=== PATIENT | female | born 1955 | race African-American/Black ===

== ENCOUNTER 2025-06-29 12:34 | Outpatient (AMB) | payer MEDICARE, SELFPAY ==
--- NOTE | 2025-06-29 12:53 | A.PHYSOV ---
Vital Signs 06/29/25 12:56 Height 5 ft 11 in Weight 210 lb BMI 29.3 Intake Visit Reasons: NPV VMA Ref- bilateral knee pain Intake Note: Patient is a 70 year old female here for new patient office visit. Patient presents with bilateral knee pain. Allergist/Immunologist Physician Required: No Allergies No Known Allergies Allergy (Verified 06/29/25 12:56) HPI Comments Details: History of Present Illness The patient is a 70 year old individual presenting with knee pain and swelling. The patient reports that for the past month, there has been significant swelling and pain in the knees, ankles, and toes. The patient has a history of arthritis and was recently diagnosed with gout based on blood work. The pain is worse at night and upon standing after prolonged sitting. The patient has not had previous x-rays or cortisone injections for the knees but did try physical therapy in the past, which was not helpful. The patient recently took some unspecified pills prescribed by Dr. Petersen to reduce swelling. The patient's medical history is significant for diabetes, for which the blood sugars are reportedly well-controlled. The patient denies any known allergies. There are no x-rays in the system. Patient is not interested in having any x-rays today. I reviewed the referring provider's no prior consultation. Pain Description - Onset: Approximately one month ago. - Location: Pain and swelling are present in the knees, ankles, and side of the toes. - Character: Described as soreness. - Exacerbating Factors: Pain worsens at nighttime and when attempting to stand after sitting for a period of time. - Severity: The patient had difficulty quantifying the pain on a 0-10 scale. [facility] Surgical History H/O thumb surgery History of back surgery Social History (Updated 06/29/25 @ 12:57 by Flora Persaud MA) Alcohol intake: current Alcohol intake frequency: does not drink Patient Tobacco Use Status: Former Tobacco user Review of Systems Narrative Review of Systems - Musculoskeletal: Reports knee pain, ankle pain, and swelling in the knees, ankles, and toes. - Endocrine: Reports history of diabetes with good blood sugar control. - Allergic/Immunologic: Denies any known allergies. Physical Exam Exam Exam: Physical Exam Lumbar Spine: Examination of her lumbar spine, there is no visible swelling or deformity. She is tender to lower lumbar facets. She is otherwise nontender. Full range of motion of the lumbar spine. Special Tests: Lhermittes sign was negative Heel Toe walk is normal Left straight leg raise: Negative Right straight leg raise: Negative Special tests Cristiano test is negative Ganslen's test is negative SI Joint compression test negative July test negative Piriformis stretch is negative Lower Extremities: Examination of both knees, there is no effusion. She is tender to the medial joint line bilaterally. There is popliteal fullness on the left. She has full range of motion of her knee in flexion-extension. Her ligaments are intact. She does have pain with Ravin testing medially. No calf pain or edema. Neuro: Sensation: Intact to lower extremities bilaterally Strength L2 (Psoas): 5/5 on the left and 5/5 on the right. L3 (Quads): 5/5 on the left and 5/5 on the right. L4 (Ant tibialis): 5/5 on the left and 5/5 on the right. L5 (EHL) 5/5 on the left and 5/5 on the right. S1 (Gastroc): 5/5 on the left and 5/5 on the right. DTR L4: (Patellar) Left 2 Right 2 S1: (Achilles) Left 2 Right 2 Babinski Downgoing No pathologic clonus. No involuntary movement. Vital Signs: BMI result Body Mass Index 29.3 Office Procedures AMB Knee Injection AMB Knee Injection Procedure Details: Bilateral Knee injection: The risks, benefits and complications of the left knee injection were discussed with the patient including but not limited to increased serum glucose, infection, nerve pain, fat atrophy, pigment augmentation, bleeding and pain. All questions were answered to the patient's satisfaction. Verbal consent was obtained. The patient was eager to proceed. Using aseptic technique with Betadine, ethyl chloride was then used to desensitize the skin. Using a 22-gauge needle 40 mg of Kenalog and 3 mL 2% lidocaine were injected into the knee joint. A Band-Aid was applied. Patient tolerated the procedure well without immediate complication. Postinjection instructions were given. The procedure was repeated on the right. Knee Injection - : Bilateral All charges added?: Procedure code (CPT) selection complete Office Meds Kenalog 40 mg/mL suspension for injection Performing Provider: LEILANI Biswas Performing Location: [facility] Administered by: LEILANI Biswas on 06/29/25 13:17 Dose Route Admin Location Dispensed Lot Number Expiration Date [facility] [employer] 40 mg intra-articular 1 mL [id number] [employer] Total Dispensed Waste 1 mL 0 % lidocaine (PF) 20 mg/mL (2 %) injection solution Performing Provider: LEILANI Biswas Performing [facility] Administered by: LEILANI Biswas on 06/29/25 13:17 Dose Route Admin Location Dispensed Lot Number Expiration Date [facility] [employer] 60 mg intra-articular 50 mL [id number] Total Dispensed Waste 50 mL 0 % Assessment & Plan Assessment & Plan (1) Bilateral primary osteoarthritis of knee: Code(s): M17.0 - Bilateral primary osteoarthritis of knee Category: Medical (2) Gouty arthritis: Code(s): M10.9 - Gout, unspecified Category: Medical Plan Pain Management - Affect: The patient is seeking pain relief to be able to get up and down and move around to prepare a Thanksgiving dinner. - Analgesia: The patient is interested in and received bilateral knee cortisone injections during the visit. - Activities of Daily Living: Pain interferes with getting up from a sitting position. Plan Patient was informed and verbally consented to the use of an ambient scribe for clinic note documentation during this visit. 1. Gout Of Knee The patient's knee pain and swelling, ongoing for a month, are attributed to both pre-existing arthritis and a new diagnosis of gout confirmed by blood work. Bilateral intra-articular corticosteroid injections were administered to the knees to address inflammation from both conditions. The patient was educated on following a low-purine diet, limiting foods like shellfish, certain meats, and alcohol to manage gout. These injections can be repeated every three months as needed for pain relief. 2. Ankle Pain And Swelling The patient also reports associated ankle swelling and pain, particularly at night. Management for the ankle is deferred to assess for any systemic benefits from the knee corticosteroid injections. If ankle symptoms persist after a month, the patient is advised to return for further evaluation and potential ankle injection. 3. Diabetes Mellitus The patient has a history of diabetes with good blood sugar control. Advised that the corticosteroid injections may temporarily increase blood glucose levels and instructed to monitor sugars, contacting the primary doctor if levels exceed 300. We discussed the benefits of proper nutrition and exercise to maintain a healthy body weight to improve longevity and function. We also discussed the benefits of proper lifting techniques, core strengthening and proper posture. Thank you for allowing me to participate in the care of your patient. Orders: Orders AMB Knee Injection Today M10.9 - Gout, unspecified, M17.0 - Bilateral primary osteoarthritis of knee Coding Level of Care Code Tele New Pt Level 3 (32637) Diagnoses Bilateral primary osteoarthritis of knee M17.0 Gouty arthritis M10.9 CPT Codes AMB Knee Injection - Hip/Bursa Injection - : Bilateral ([id number])
[2025-06-29 12:56] VITALS: BMI 29.3
--- OUTSIDE RECORDS SUMMARY | 2025-06-29 15:35 | XMS_ITS | Continuity of Care Document ---
Author Organization [facility], Main Office Address [address] [facility] [address] [place] [address] Care Team Providers Care Statistical Reporting Analyst Name Role Phone CHIO ARGUETA Primary Care Provider ADELAIDA TEAGUE Orthopedic Surgeon [phone] DANILO MATHEWS Psychiatrist JOHN MYERS Orthopedic Surgeon [facility] Psychiatr ist ANNA CEDENO Contracts Law Professor HOLLY CLEMENTS Galley Cook MARIELENA JACK Rail Switchman FERNANDO CARRANZA Economics Instructor [phone] SERA FIORE Referring Provider JOSHUA BLACKBURN Cell Lead [phone] HUMZA TAYLOR Fixing Carpenter Assessment No assessment recorded. Plan of Treatment Reminders Order Date Submit Date Provider Last Modified By Organization Details Last Modified Time Details Appointments Follow Up DM 30 2025 10:30A M Lucita Tellez PA-C Not available Not available Not available Lab uric acid, serum or plasma 2024 025 ELROY [facility] (Centralized Electronic Ordering - All Locations), Patient Can Go To The Location Of Their Choice, [id number] 05/26/2025 06:08:16 inflammat ion panel, serum or plasma 2024 025 ELROY [facility] (Centralized Electronic Ordering - All Locations), Patient Can Go To The Location Of Their Choice, [id number] 05/26/2025 06:08:15 [facility] - Patient has chronic intermitt ent bilateral knee pain, consisten t with arthritis . Does have CKD, history of gout. Limited pain managemen t options. Patient reports she does exercises at home and is intereste d in additiona l pain managemen t options. 2024 025 JOE Wilson MD, [address], [place], [address], 05/26/2025 10:47:25 Procedures None recorded. Surgeries None recorded. Imaging None recorded. Medication Orders None recorded. Patient TargetsNo targets recorded. Patient Instructions Encounter Date Encounter Id Patient Instructions Last Modified By Organization Details Last Modified Time 05/25/2025 [id number] knee arthritis: exercises [email or web address] Not available 05/25/2025 11:20:40 Medications (OTC, herbal therapies, supplements) reviewed and reconciled with patient and or caregiver, including potential side effects, drug interactions, instructions, and the consequences of not taking medication. Reviewed potential barriers to medication adherence, such as side effects from medication or cost of medication. [email or web address] Not available 05/25/2025 10:18:01 Reason for Referral Physical Medicine And Rehabi litation Referral for Pain of knee region Patient has chronic intermittent bilateral knee pain, consistent with arthritis. Does have CKD, history of gout. Limited pain management options. Patient reports she does exercises at home and is interested in additional pain management options. Referring Physician: Kristine Khanna, Family Medicine, Encounter Date: 05/25/2025 Results Created Date Observation Date Name Description Value Unit Range Abnormal Flag Note LastModifiedBy Organization Detail LastModifiedTime 05/25/2005/25/2025 ESR-W ES+CR P sedimentatio n rate-westerg kang 95 mm/HR 0-40 above high normal Not Available [facility] ([facility]) [address] [facility], [place], [address], 05/26/2025 06:08:15 05/25/2005/26/2025 ESR-W ES+CR P C-reactive protein, quant 32 mg/L 0-10 above high normal Not Available [facility] ([facility]) [address] [facility], [place], [address], 05/26/2025 06:08:15 05/25/20 25 05/26/2025 URIC ACID uric acid 10.8 mg/dL 3.1-7. 9 above high normal Thera blossom garcia tarcrispin t for gout patie nts: <6.0 Not Available [facility] ([facility]) [address] [facility], [place], [address], 05/26/2025 06:08:16 Result Notes None recorded. Problems Name Problem SNOMED Code Status Onset Date Resolution Date Notes Provider Name and Address Organization Details Recorded Time Type 2 diabetes mellitus without complica tion 831541368 Completed 10/26/2019 This has resolved since weight loss; not currentl y on meds 09/2015. Lucita Tellez PA-C [address] [address], [place], [address] , [facility] 0 11:10:16 Multiple congenit al cysts of kidney 03672291 Active Stable on CT. Not Available [facility] 3 13:34:14 Malaise and fatigue 002099477 Active Not Available [facility] 3 13:34:14 Sciatica 87355955 Active Not Available [facility] 3 13:34:14 Diarrhea 63330891 Completed 10/26/2019 Lucita Tellez PA-C [address] [facility] [address], [place], [address] , [facility] 0 11:10:01 Degenera tion of lumbar interver tebral disc 37789719 Active seen by [facility] and also followed by Dr Myers Not Available [facility] 3 13:34:14 Type 2 diabetes mellitus 12831937 Completed 10/05/2014 Chio Argueta MD [address] [facility] [address], [place], [address] , [facility] 1 11:31:05 Ischemic colitis 84907684 Active had parital colectom y Not Available [facility] 3 13:34:14 Onychomy cosis 611305256 Active Followed by De Teodoro Not Available [facility] 3 13:34:14 Hammer toe 760327831 Active Followed by De Teodoro Not Available [facility] 3 13:34:14 Ingrowin g nail 428121173 Active Followed by De Teodoro Not Available [facility] 3 13:34:14 Abdomina l pain 72644588 Active Not Available [facility] 3 13:34:14 Advance directiv e discusse d with patient 490147930 Active Not Available [facility] 3 13:34:14 Type 2 diabetes mellitus 61148817 Completed 02/03/2018 Chio Argueta MD [address] [facility] [address], [place], [address] , [facility] 1 11:31:05 Kidney disease 52860530 Active Not Available 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 3 13:34:14 Tobacco dependen ce syndrome 63763550 Completed 08/28/2022 pt quit ABIMBOLA TREVINO MD [address] [facility] [address], [place], [address] , [facility] 3 16:15:46 General examinat ion of patient Completed 200702/22/2014 RECORDED 04/25/20 08 12:38PM BY PRINCE LU MA, ANNOTATI ON/ADDEN DUM Chio Argueta MD [address] [facility] [address], [place], [address] , [facility] 6 16:57:14 General examinat ion of patient Completed 200703/14/2014 RECORDED 04/25/20 08 12:38PM BY PRINCE LU MA, ANNOTATI ON/ADDEN DUM Chio Argueta MD [address], [place], [address] , [facility] 6 16:57:14 Essentia l hyperten kemal 65987247 Completed 201102/22/2014 RECORDED 10/29/19 12 10:22AM BY PRINCE LU MA, ANNOTATI ON/ADDEN DUM Lucita Geoff PA-C [address], [place], [address] , [facility] 5 14:23:35 Essentia l hyperten kemal 90703796 Completed 201103/14/2014 RECORDED 10/29/19 12 10:22AM BY PRINCE LU MA, ANNOTATI ON/ADDEN DUM Lucita Geoff PA-C [address], [place], [address] , [facility] 5 14:23:35 Screenin g for malignan t neoplasm of breast Completed 201102/22/2014 RECORDED 05/04/20 12 9:25AM BY ANAMIKA ORONA ON/ADDEN DUM Chio Argueta MD [address], [place], [address] , [facility] 6 16:57:14 Screenin g for malignan t neoplasm of cervix Completed 201102/22/2014 RECORDED 05/04/20 12 9:25AM BY CARLOS ALBERTO ORONAATI ON/ADDEN RAFAELA Argueta MD [address], [place], [address] , [facility] 6 16:57:14 Screenin g for malignan t neoplasm of colon Completed 201102/22/2014 RECORDED 05/04/20 12 9:25AM BY ANAMIKA ORONA ON/MARISABEL Argueta MD [address], [place], [address] , [facility] 6 16:57:14 Edema 786002596 Completed 201102/22/2014 RECORDED 05/04/20 12 9:25AM BY ANAMIKA ORONA ON/MARISABEL Argueta MD [address], [place], [address] , [facility] 6 16:57:14 Eruption [id number] Completed 201102/22/2014 RECORDED 05/04/20 12 9:25AM BY ANAMIKA ORONA ON/MARISABEL Agrueta MD [address], [place], [address] , [facility] 6 16:57:14 Adult health examinat ion Completed 201102/22/2014 RECORDED 05/04/20 12 9:25AM BY ANAMIKA ORONA ON/MARISABEL Argueta MD [address] [facility] [address], [place], [address] , [facility] 6 16:57:14 Screenin g for malignan t neoplasm of breast Completed 201103/14/2014 RECORDED 05/04/20 12 9:25AM BY ANAMIKA ORONA ON/MARISABEL Argueta MD [address], [place], [address] , [facility] 6 16:57:14 Screenin g for malignan t neoplasm of cervix Completed 201103/14/2014 RECORDED 05/04/20 12 9:25AM BY ANAMIKA ORONA ON/ADDEN RAFAELA Argueta MD [address], [place], [address] , [facility] 6 16:57:14 Screenin g for malignan t neoplasm of colon Completed 201103/14/2014 RECORDED 05/04/20 12 9:25AM BY ANAMIKA ORONA ON/ADDEN DUM Chio Argueta MD [address] [facility] [address], [place], [address] , [facility] 6 16:57:14 Edema [id number] Completed 201103/14/2014 RECORDED 05/04/20 12 9:25AM BY ANAMIKA ORONA ON/ADDEN RAFAELA Argueta MD [address] [facility] [address], [place], [address] , [facility] 6 16:57:14 Eruption 073885357 Completed 201103/14/2014 RECORDED 05/04/20 12 9:25AM BY ANAMIKA ORONA ON/ADDEN DUM Chio Argueta MD [address] [facility] [address], [place], [address] , [facility] 6 16:57:14 Obesity 734987707 Completed 201202/22/2014 RECORDED 11/05/19 13 9:08AM BY ANAMIKA ORONA ON/ADDEN DUM Abbie Villafana shae, [facility] 9 11:56:06 Obesity 956928541 Completed 201203/14/2014 RECORDED 11/05/19 13 9:08AM BY ANAMIKA ORONA ON/ADDEN DUM Abbie Villafana null, [facility] 9 11:56:06 Partial resectio n of colon Active 2012 Not Available [facility] 3 13:34:14 Noninfec tious gastroen teritis 94469771 Completed 201202/22/2014 RECORDED 05/13/20 13 8:44AM BY MERE HIGHTOWER I, ANNOTATI ON/ADDEN DUM Chio Argueta MD [address] [facility] [address], [place], [address] , [facility] 6 16:57:14 Influenz a vaccine needed 86093722542 06 Completed 201202/22/2014 RECORDED 05/13/20 13 9:10AM BY MERE HIGHTOWER I, OFFICE VISIT Chio Argueta MD [address] [facility] [address], [place], [address] , [facility] 6 16:57:14 Noninfec tious gastroen teritis 83495316 Completed 201203/14/2014 RECORDED 05/13/20 13 8:44AM BY MERE HIGHTOWER I, CARLOS ALBERTOATI ON/ADDEN DUM Chio Argueta MD [address] [facility] [address], [place], [address] , [facility] 6 16:57:14 Influenz a vaccine needed 46605311911 06 Completed 201203/14/2014 RECORDED 05/13/20 13 9:10AM BY MERE HIGHTOWER I, OFFICE VISIT Chio Argueta MD [address] [facility] [address], [place], [address] , [facility] 6 16:57:14 Patient status finding [id number] Completed 201202/22/2014 RECORDED 05/19/20 13 12:57PM BY GUALBERTO HELTON MA, ANNOTATI ON/ADDEN DUM Chio Argueta MD [address] [facility] [address], [place], [address] , [facility] 6 16:57:14 Patient status finding [id number] Completed 201203/14/2014 RECORDED 05/19/20 13 12:57PM BY GUALBERTO HELTON MA, ANAMIKA ON/MARISABEL Argueta MD [address], [place], [address] , [facility] 6 16:57:14 Laborato ry procedur e performe d 925848193 Completed 201202/22/2014 RECORDED 06/16/20 13 12:59PM BY ANAMIKA ORONA ON/MARISABEL Argueta MD [address] [facility] [address], [place], [address] , [facility] 6 16:57:14 Laborato ry procedur e performe d 387963003 Completed 201203/14/2014 RECORDED 06/16/20 13 12:59PM BY ANAMIKA ORONA ON/MARISABEL Argueta MD [address] [facility] [address], [place], [address] , [facility] 6 16:57:14 Follow-u p encounte r Completed 201302/22/2014 RECORDED 08/09/19 14 10:30AM BY JORGE HAMMOND MA, ANAMIKA ON/MARISABEL Argueta MD [address] [facility] [address], [place], [address] , [facility] 6 16:57:14 Knee pain Completed 201302/22/2014 RECORDED 08/09/19 14 10:30AM BY JORGE HAMMOND MA, ANAMIKA ON/MARISABEL Argueta MD [address] [facility] [address], [place], [address] , [facility] 6 16:57:14 Follow-u p encounte r Completed 201303/14/2014 RECORDED 08/09/19 14 10:30AM BY JORGE HAMMOND MA, ANAMIKA ON/MARISABEL Argueta MD [address] [facility] [address], [place], [address] , [facility] 6 16:57:14 Knee pain Completed 201303/14/2014 RECORDED 08/09/19 14 10:30AM BY JORGE HAMMOND MA, ANAMIKA ON/MARISABEL Argueta MD [address] [facility] [address], [place], [address] , [facility] 6 16:57:14 Attentio n to colostom y Completed 201302/22/2014 IMPRESSI ON: SHE IS DOING WELL WITH OTC IMMODIUM ; SCHEDULE D FOR A TAKEDOWN IN 4 DAYS.; RECORDED 09/06/19 14 8:20AM BY ANAMIKA ORONA ON/MARISABEL Argueta MD [address] [facility] [address], [place], [address] , [facility] 6 16:57:14 Attentio n to colostom y Completed 201303/14/2014 IMPRESSI ON: SHE IS DOING WELL WITH OTC IMMODIUM ; SCHEDULE D FOR A TAKEDOWN IN 4 DAYS.; RECORDED 09/06/19 14 8:20AM BY ANAMIKA ORONA/MARISABEL Argueta MD [address] [facility] [address], [place], [address] , [facility] 6 16:57:14 History of gastroin testinal disease 981907760 Completed 201302/22/2014 IMPRESSI ON: SHE HAD A TAKEDOWN DONE ABOUT 3 WEEKS AGO AND HAS SOME ABDOMINA L PAIN BUT IS DOING BETTER.; RECORDED 10/13/19 14 8:19AM BY ANAMIKA ORONA ON/MARISABEL Argueta MD [address] [address], [place], [address] , [facility] 6 16:57:14 History of gastroin testinal disease 810562186 Completed 201303/14/2014 IMPRESSI ON: SHE HAD A TAKEDOWN DONE ABOUT 3 WEEKS AGO AND HAS SOME ABDOMINA L PAIN BUT IS DOING BETTER.; RECORDED 10/13/19 14 8:19AM BY ANAMIKA ORONA/MARISABEL Argueta MD [address] [address], [place], [address] , [facility] 6 16:57:14 Diarrhea 48438035 Completed 201302/22/2014 IMPRESSI ON: SECONDAR Y TO ILEUM AND COLON RESECTIO N. WILL DO A TRIAL OF AN ANTIDIAR RHEAL TO SEE IF THIS REDUCES HER FREQUENC Y.; RECORDED 12/07/19 14 11:21AM BY ANAMIKA ORONA/MARISABEL Tellez PA-C [address] [address], [place], [address] , [facility] 0 11:10:01 Pain of hip region 37869803 Completed 201302/22/2014 IMPRESSI ON: SECONDAR Y TO L5 RADICULO ELVIS; FOLLOWED BY PSSP.; RECORDED 12/07/19 14 11:21AM BY ANAMIKA ORONA/MARISABEL Argueta MD [address] [address], [place], [address] , [facility] 6 16:57:14 Ill-defi dejah disease Completed 201302/22/2014 IMPRESSI ON: SHE HAS BEEN OOW SINCE HER ICU ADMISSIO N AND SURGERY LAST YEAR. WE WILL SEND HER TO OT FOR AN EVALUATI ON CONCERNI NG HER PHYSICAL ABILITIE S TO HELP DETERMIN E DISABILI TY LEVEL.; RECORDED 12/07/19 14 11:21AM BY ANAMIKA ORONA/MARISABEL Argueta MD [address] [facility] [address], [place], [address] , [facility] 6 16:57:14 Patient status finding [id number] Completed 201305/17/2014 RECORDED 12/07/19 14 11:33AM BY MERE HIGHTOWER I, OFFICE VISIT Chio Argueta MD [address] [facility] [address], [place], [address] , [facility] 6 16:57:14 Pain of hip region 35354651 Completed 201303/14/2014 IMPRESSI ON: SECONDAR Y TO L5 RADICULO ELVIS; FOLLOWED BY PSSP.; RECORDED 12/07/19 14 11:21AM BY MERE HIGHTOWER I, ANNOTATI ON/MARISABEL Argueta MD [address] [facility] [address], [place], [address] , [facility] 6 16:57:14 Ill-defi dejah disease Completed 201303/14/2014 IMPRESSI ON: SHE HAS BEEN OOW SINCE HER ICU ADMISSIO N AND SURGERY LAST YEAR. WE WILL SEND HER TO OT FOR AN EVALUATI ON CONCERNI NG HER PHYSICAL ABILITIE S TO HELP DETERMIN E DISABILI TY LEVEL.; RECORDED 12/07/19 14 11:21AM BY MERE HIGHTOWER I, ANNOTATI ON/MARISABEL Argueta MD [address] [facility] [address], [place], [address] , [facility] 6 16:57:14 Liver function tests outside referenc e range 990250010 Completed 201305/17/2014 RECORDED 01/07/20 14 11:22AM BY MERE HIGHTOWER I, OFFICE VISIT Chio Argueta MD [address] [facility] [address], [place], [address] , [facility] 6 16:57:14 Hypercal cemia 36809594 Completed 201305/17/2014 IMPRESSI ON: PROBABLY SECONDAR Y TO RENAL FAILURE; RECORDED 01/07/20 14 11:22AM BY MERE HIGHTOWER I, OFFICE VISIT Chio Argueta MD [address] [facility] [address], [place], [address] , [facility] 6 16:57:14 Hypokale nadine 08140169 Completed 201305/17/2014 RECORDED 01/07/20 14 11:22AM BY MERE HIGHTOWER I, OFFICE VISIT Chio Argueta MD [address] [facility] [address], [place], [address] , [facility] 6 16:57:14 Acidosis 91219171 Completed 201305/17/2014 IMPRESSI ON: WITH AN INCREASE D ANION GAP C/W RENAL FAILURE. ; RECORDED 01/07/20 14 11:22AM BY MERE HIGHTOWER I, OFFICE VISIT Chio Argueta MD [address] [facility] [address], [place], [address] , [facility] 6 16:57:14 Disorder of intestin e 00833140 Completed 201305/17/2014 STORY: ADMITTED AND HAD SURGERY DONE ON NECROTIC INTESTIN ES.; RECORDED 01/07/20 14 11:22AM BY MERE HIGHTOWER I, OFFICE VISIT Chio Argueta MD [address] [facility] [address], [place], [address] , [facility] 6 16:57:14 Disorder of kidney and/or ureter 315984577 Completed 201305/17/2014 IMPRESSI ON: DOING BETTER SINCE D/C; SHE IS DRINKING PLENTY OF FLUIDS AND TAKING FIBER; SHE HAS A F/U WITH GI WELL WITH RENAL.; RECORDED 01/07/20 14 11:22AM BY MERE HIGHTOWER I, OFFICE VISIT Chio Argueta MD [address] [facility] [address], [place], [address] , [facility] 6 16:57:14 Adult health examinat ion Completed 201305/17/2014 RECORDED 01/07/20 14 11:22AM BY MERE HIGHTOWER I, OFFICE VISIT Chio Argueta MD [address] [facility] [address], [place], [address] , [facility] 6 16:57:14 Multiple congenit al cysts of kidney 59679908 Completed 201303/14/2014 RECORDED 01/07/20 14 9:05AM BY MERE HIGHTOWER I, ANNOTATI ON/ADDEN DUM Chio Argueta MD [address] [facility] [address], [place], [address] , [facility] 6 16:57:14 Degenera tion of interver tebral disc Completed 201303/14/2014 IMPRESSI ON: FOLLOWED BY [facility]SS[facility] AND DOING PT WHICH HAS NOT BEEN HELPING. ; RECORDED 01/07/20 14 9:05AM BY MERE HIGHTOWER I, ANNOTATI ON/ADDEN DUM Chio Argueta MD [address] [facility] [address], [place], [address] , [facility] 6 16:57:14 Allergic rhinitis 56860262 Active 2016 Not Available [facility] 3 13:34:14 Stenosin g tenosyno vitis 72342561 Active 2016 right thumb; schedule d for surgery with Dr Teague Not Available [facility] 3 13:34:14 Obesity 840366835 Active 2018 Not Available [facility] 3 13:34:14 Chronic kidney disease stage 2 524539089 Completed 201810/26/2019 Lucita Tellez PA-C [address] [facility] [address], [place], [address] , [facility] 0 10:41:53 Low back pain 800210052 Active 2018 Followed by [facility] and on chronic narcotic s.. Post-amanda inectomy syndrome . Not Available [facility] 3 13:34:14 Long-ter m current use of insulin 532980531 Active 2019 Not Available [facility] 3 13:34:14 Small bowel obstruct ion 146807114 Active 2019 Not Available [facility] 3 13:34:14 Diabetic peripher al neuropat hy 639495491 Active 2019 Not Available [facility] 3 13:34:14 Hyperten sive renal disease 15842901 Active 2020 Not Available [facility] 3 13:34:14 Chronic kidney disease stage 2 due to type 2 diabetes mellitus 72939823398 1 Completed 202003/22/2021 Chio Argueta MD [address] [address], [place], [address] , [facility] 1 11:30:46 Renal disorder due to type 2 diabetes mellitus 749338278 Active 2020 Not Available [facility] 3 13:34:14 Iron deficien cy anemia 74894225 Active 2021 Not Available 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 [address] [facility] [address], [place], [address] , [facility] 5 11:02:47 Gouty arthriti s 32221599 Active 2024 KRISTINE Ewing, [facility] [address] [facility] [address], [place], [address] , [facility] 5 09:13:39 Problem Notes None recorded. Procedures Surgical History Date Name Laterality Status Provider Name and Address Organization Details Recorded Time 025 Diabetic Foot Exam (Monofilament) completed Chio Argueta MD [address] [address], [place], [address], [facility] 12/21/2024 15:18:30 025 Most Recent Mammogram completed Lisa Mcdermott [facility] 10/04/2024 15:10:45 025 Mammogram Screening completed Lisa Mcdermott [facility] 10/04/2024 15:10:28 024 diabetic retinopathy screening completed Elizabeth Nair [facility] 11/13/2023 08:33:25 024 Advanced Care Planning completed Chio Argueta MD [address] [address], [place], [address], [facility] 09/09/2023 15:08:14 024 Diabetic Foot Exam (Monofilament) completed Chio Argueta MD [address] [address], [place], [address], [facility] 09/09/2023 15:08:18 022 Date of Last Colonoscopy completed Wendi Villafana [facility] 05/01/2022 14:00:37 022 Colonoscopy completed Wendi Sharifo [facility] 05/01/2022 14:00:28 021 Diabetic Foot Exam (Monofilament) completed Chio Argueta MD [address] [address], [place], [address], [facility] 03/22/2021 11:38:44 021 Date of Last Pap Smear completed [facility] Dinh [facility] [place] 12/28/2020 14:04:45 020 Diabetic Foot Exam (Monofilament) completed Chio Argueta MD [address] [address], [place], [address], [facility] 02/15/2020 12:53:11 020 Six-Item Cognitive Test completed Wilma Colorado [facility] 02/15/2020 11:05:31 020 Flexible Sigmoidoscopy completed Meredith Beth [facility] 01/12/2020 10:17:58 019 Diabetic Foot Exam (Monofilament) completed Mayte Granado [facility] 04/14/2019 10:34:46 018 simple tenolysis of flexor tendon of palm completed Chio Argueta MD [address], [address], [facility] 02/09/2019 11:42:43 018 revision of tenolysis completed Elise Castellon [facility] 06/08/2018 14:01:23 018 Mini-Cog Test completed Mere Dodge [facility] 11/04/2017 11:19:18 017 Mini-Cog Test completed Mere Dodge [facility] 10/01/2016 10:10:06 016 Advanced Care Planning completed Mere Dodge [facility] 09/26/2015 11:00:09 014 Gastrointestinal Surgery completed Chio Argueta MD [address] [address], [place], [address], [facility] 05/18/2014 12:51:48 014 Back Surgery completed Chio Argueta MD [address] [address], [place], [address], [facility] 05/27/2014 13:23:02 013 Gastrointestinal Surgery completed Chio Argueta MD [address] [address], [place], [address], [facility] 05/18/2014 12:51:48 Imaging Results None recorded. Procedure Notes None recorded. Medical Equipment None Reported. Allergies Allergen ID Allergen Name Allergen Category Reaction Reaction Severity Criticality Documentation Date Start Date Code Code System Note Provider Name and Address Organization Details Recorded Time 9602 No known allergy (situatio n) Not available Not available Not available Not available 02/15/2014 [id number] SNDANISH Norton [address] [address], [place], [address], [facility] 6 20:36:54 No known drug allergies Medications Name Sig Start Date Stop Date Status Note LastModified by Organization Details LastModified Time oxycodone /acetamin ophen 5-325 mg tabs active Not Available Not Available Not Available Prescript ion - Clarifica tion 06/28 completed Not Available Not Available Not Available Prescript ion - New 07/29 completed Not Available Not Available Not Available celecoxib 200 mg capsule TAKE 1 CAPSULE BY MOUTH EVERY DAY 08/28 completed Not Available Not Available Not Available prednison e 10 mg tablet Take 1 tablet every day by oral route as directed for 12 days. 06/14 completed Not Available Not Available Not Available atorvasta tin 20 mg tablet TAKE ONE TABLET BY MOUTH DAILY AT 9PM AT BEDTIME active Not Available Not Available No t Available insulin glargine (U-100) 100 unit/mL subcutane ous solution QD active RECORDED 05/08/20 14 1:03PM BY CHIO LARA MD, ANNOTATI ON/MARISABEL DUM; Not Available Not Available Not Available Klor-Con 10 mEq tablet,ex tended release Take 1 tablet every day by oral route for 7 days. 2023 active Not Available Not Available Not Avai lable Vitamin C 500 mg tablet Take 1 tablet every day by oral route for 90 days. 06/14 completed Not Available Not Available Not Available cetirizin e 10 mg tablet Take 1 tablet every day by oral route. 09/09 completed Not Available Not Available Not Available lisinopri l 20 mg-hydroc hlorothia zide 12.5 mg tablet TAKE 1 TABLET BY MOUTH EVERY DAY 08/07 completed Not Available Not Available Not Available ibuprofen 800 mg tablet 06/10 completed CKD Not Available Not Available Not Available Glucagon Emergency Kit 1 mg solution for injection Take 1 mg by injectio n route. 2024 active Not Available Not Available Not Avai lable nifedipin e ER 90 mg tablet,ex tended release TAKE 1 TABLET BY MOUTH EVERY DAY DIRECTED FOR 90 DAYS 03/22 completed Not Available Not Available Not Available metoprolo l succinate ER 50 mg tablet,ex tended release 24 hr TAKE ONE TABLET BY MOUTH ONCE DAILY active Not Available Not Available No t Available diltiazem CD 240 mg capsule,e xtended release 24 hr TAKE ONE CAPSULE BY MOUTH DAILY AT 9AM FOR 90 DAYS active Not Available Not Available No t Available sucralfat e 1 gram tablet TAKE 1 TABLET BY MOUTH 4 TIMES A DAY 03/22 completed Not Available Not Available Not Available lisinopri l 20 mg tablet TAKE 1 TABLET BY MOUTH EVERY DAY 05/08 completed Not Available Not Available Not Available ondansetr on HCl 4 mg tablet 4 mg by oral route. 02/14 completed Not Available Not Available Not Available metoprolo l succinate ER 100 mg tablet,ex tended release 24 hr TAKE ONE TABLET BY MOUTH DAILY AT 9AM 06/16 completed Not Available Not Available Not Available diphenoxy late-atro pine 2.5 mg-0.025 mg tablet DAILY 02/07 completed RECORDED 02/15/20 14 8:58AM BY CHIO LARA MD, MEDICATI ON AUTO-CLARY CTIVATIO N; Not Available Not Available Not Available diltiazem ER 240 mg capsule,2 4 hr,extend ed release Take 1 capsule every day by oral route for 90 days. 09/30 completed has diltiaze m CD. Not Available Not Available Not Available omeprazol e 40 mg capsule,d elayed release TAKE ONE CAPSULE BY MOUTH TWICE DAILY @ 9AM & 5PM active Not Available Not Available No t Available acetamino phen 500 mg tablet Take 2 tablets every 6 hours by oral route as needed. 06/16 completed Not Available Not Available Not Available hydrocort isone acetate 25 mg rectal supposito ry Insert 1 supposit ory twice a day by rectal route for 12 days. 01/20 completed Not Available Not Available Not Available meloxicam 7.5 mg tablet Take 1 tablet every day by oral route for 28 days. 09/17 completed Not Available Not Available Not Available oxycodone -acetamin ophen 5 mg-325 mg tablet TAKE ONE TABLET BY MOUTH DAILY NEEDED , MAY PARTIAL FILL 05/25 completed Not Available Not Available Not Available magnesium oxide 400 mg (241.3 mg magnesium ) tablet TAKE 1 TABLET BY MOUTH ONCE DAILY active Not Available Not Available No t Available metoclopr amide 5 mg tablet TAKE 1 TABLET BY MOUTH THREE TIMES A DAY BEFORE MEALS FOR 30 DAYS 06/16 completed Not Available Not Available Not Available nifedipin e 10 mg capsule THREE TIMES DAILY 08/12 completed RECORDED 08/12/19 14 11:01AM BY CHIO LARA MD, ANNOTATI ON/ADDEN DUM;MAY CRUSH Not Available Not Available Not Available sodium bicarbona te 650 mg tablet Take 1 tablet twice a day by oral route for 14 days. 06/24 completed Not Available Not Available Not Available nifedipin e ER 90 mg tablet,ex tended release 24 hr TAKE 1 TABLET BY MOUTH EVERY DAY 2013 active Not Available Not Available Not Avai lable pantopraz ole 40 mg tablet,de layed release TAKE 1 TABLET BY MOUTH EVERY DAY 03/22 completed Not Available Not Available Not Available ferrous sulfate 325 mg (65 mg iron) tablet Take 1 tablet twice a day by oral route for 90 days. 2021 active Not Available Not Available Not Avai lable lisinopri l 10 mg tablet Take 1 tablet every day by oral route for 90 days, for blood pressure . 07/29 completed Not Available Not Available Not Available lidocaine 5 % topical patch 07/29 completed Not Available Not Available Not Available indometha raghav 50 mg capsule TAKE ONE CAPSULE BY MOUTH TWICE DAILY FOR 7 DAYS active Not Available Not Available No t Available gabapenti n 300 mg capsule Take 1 capsule 3 times a day by oral route as needed. active Not Available Not Available No t Available lisinopri l 20 mg-hydroc hlorothia zide 25 mg tablet TAKE ONE TABLET BY MOUTH DAILY AT 9AM FOR 90 DAYS active Not Available Not Available No t Available diclofena c sodium 75 mg tablet,de layed release Take 1 tablet twice a day by oral route for 30 days. 2014 active Not Available Not Available Not Pat lable K-Dur 10 mEq tablet,ex tended release QD 02/20 completed RECORDED 02/21/20 09 10:46AM BY PRINCE LU MA, OFFICE VISIT;30 DAY Not Available Not Available Not Available ammonium lactate 12 % topical cream 10/01 completed Not Available Not Available Not Available codeine 10 mg-guaife nesin 100 mg/5 mL oral liquid Take 10 mL every 4 hours by oral route as needed, for cough. 05/25 completed Not Available Not Available Not Available lisinopri l 5 mg tablet TAKE 1 TABLET BY MOUTH EVERY DAY DIRECTED 03/22 completed Not Available Not Available Not Available gabapenti n 100 mg capsule Take 1 capsule 3 times a day by oral route for 90 days. active Not Available Not Available No t Available azelastin e 137 mcg (0.1 %) nasal spray PLACE 2 SPRAYS IN EACH NOSTRIL 2 TIMES DAILY FOR 30 DAYS. USE IN EACH NOSTRIL DIRECTED 07/18 completed Not Available Not Available Not Available Tylenol-C odeine #3 300 mg-30 mg tablet EVERY 6 HOURS NEEDED FOR PAIN 06/24 completed RECORDED 06/28/20 13 8:26AM BY CHIO LARA MD, MEDICATI ON AUTO-CLARY CTIVATIO N; Not Available Not Available Not Available ibuprofen 600 mg tablet 2 po q 6 hours prn 09/17 completed Not Available Not Available Not Available ferrous sulfate 325 mg (65 mg iron) tablet,de layed release Take 325 mg by oral route. 09/08 completed Not Available Not Available Not Available Naprosyn 500 mg tablet Take 1 tablet twice a day by oral route for 30 days. 2014 active Not Available Not Available Not Avai lable fluticaso ne propionat e 50 mcg/actua tion nasal spray,heather pension USE 2 SPRAY(S) IN EACH NOSTRIL ONCE DAILY FOR 30 DAYS 05/25 completed Not Available Not Available Not Available doxycycli ne hyclate 100 mg tablet Take 1 tablet twice a day by oral route as directed for 10 days. 04/29 completed Not Available Not Available Not Available loratadin e 10 mg tablet TAKE 1 TABLET BY MOUTH EVERY DAY 02/09 completed Not Available Not Available Not Available amoxicill in 875 mg-potass ium clavulana te 125 mg tablet Take 1 tablet every 12 hours by oral route for 10 days. 07/18 completed Not Available Not Available Not Available ferrous sulfate ER 325 mg (65 mg iron) capsule,e xtended release Take 1 capsule every day by oral route as directed . 05/01 completed duplicat e Not Available Not Available Not Available calcium 1,250 mg chewable tablet DAILY 05/23 completed RECORDED 05/23/20 13 10:51AM BY CHIO LARA MD, ANNOTATI ON/ADDEN DUM; Not Available Not Available Not Available insulin lispro (U-100) 100 unit/mL subcutane ous pen Take 5-10 units before each meal dependin g upon sugar level. 12/09 completed Not Available Not Available Not Available Novolog FlexPen U-100 Insulin aspart 100 unit/mL (3 mL) subcutane ous INJECT 5-10 UNITS SUBCUTAN EOUSLY THREE TIMES DAILY based on sugar levels. 2024 active Not Available Not Available Not Avai lable cyclobenz aprine 5 mg tablet 06/14 completed Not Available Not Available Not Available Prilosec OTC 20 mg tablet,de layed release Take 20 mg by oral route. 04/16 completed Not Available Not Available Not Available DILT-XR 120 mg capsule, extended release Take 1 capsule every day by oral route for 30 days. 12/19 completed reflex tachycar jayson Not Available Not Available Not Available acetamino phen 500 mg oral tablet 2 tabs every 6 hours as needed for pain 02/09 completed Not Available Not Available Not Available ferrous sulfate 325 mg , 1 tab by mouth daily for 90 days increase to twice a day in few days if does not cause stomach pain. 08/17 completed Not Available Not Available Not Available promethaz ine EVERY 6 HOURS PRN 01/03 completed RECORDED 01/06/20 13 11:20AM BY MELONIE PADILLA PA-C, MEDICATI ON AUTO-CLARY CTIVATIO N; Not Available Not Available Not Available Nasacort 24h hour 1- 2 sprays 03/22 completed Not Available Not Available Not Available multivita min DAILY 01/20 completed RECORDED 01/21/20 13 8:09AM BY CHIO LARA MD, REFILL REQUEST; THIS ORDER DISCONTI NUED PER MEDI-SPA N. Not Available Not Available Not Available Multivita min W/Iron DAILY 07/19 completed RECORDED 07/19/20 10 8:19AM BY CHIO LARA MD, REFILL REQUEST; THIS ORDER DISCONTI NUED PER MEDI-SPA N. Not Available Not Available Not Available Pen [place] AT BEDTIME 12/09 completed RECORDED 12/10/19 14 1:03PM BY CHIO LARA MD, ANNOTATI ON/ADDEN DUM; Not Available Not Available Not Available metformin ER 500 mg 24 hr tablet,ex tended release (gastric retention ) Take 2 tablets every day by oral route for 90 days. 06/16 completed never took it Not Available Not Available Not Available [place] 0.025 % (0.035 %) eye drops PLACE 1 DROP INTO AFFECTED EYE TWICE A DAY FOR 30 DAYS 07/18 completed Not Available Not Available Not Available FreeStyle Lite Meter kit active Not Available Not Available No t Available Golytely 236 gram-22.7 4 gram-6.74 gram-5.86 gram oral solution 08/28 completed Not Available Not Available Not Available FreeStyle Lite Strips USE DIRECTED ONCE DAILY 2023 active Not Available Not Available Jonathan sultana [facility]ocate Lancet THREE TIMES DAILY 12/09 completed RECORDED 12/10/19 14 1:03PM BY CHIO LARA MD, ANNOTATI ON/ADDEN DUM; Not Available Not Available Not Available Advocate Redi-Code Glucose Monitor THREE TIMES DAILY 12/09 completed RECORDED 12/10/19 14 1:03PM BY CHIO LARA MD, CARLOS ALBERTOATI ON/ADDEN DUM; Not Available Not Available Not Available Advocate Redi-Code DAILY 12/09 completed RECORDED 12/10/19 14 1:03PM BY CHIO LARA MD, ANNOTATI ON/ADDEN DUM; Not Available Not Available Not Available omeprazol e 20 mg tablet,de layed release TAKE 1 TABLET BY MOUTH TWICE A DAY 02/14 completed Not Available Not Available Not Available GaviLyte- N 420 gram oral solution 01/13 completed Not Available Not Available Not Available bismuth subsalicy late 524 mg/30 mL oral suspensio n Take 4 times a day by oral route as directed . 08/17 completed Not Available Not Available Not Available Benefiber Sugar Free (dextrin) 3 gram/4 gram oral powder Take 2 g twice a day by oral route. active not ready yet at pharmacy Not Available Not Available Not Available Nasal Allergy 55 mcg spray aerosol USE 1 2 SPRAYS INTO EACH NOSTRIL DAILY 03/22 completed Not Available Not Available Not Available Proctosol HC 2.5 % topical cream perineal applicato r 01/20 completed Not Available Not Available Not Available Radha Jeffers U-100 Insulin 100 unit/mL (3 mL) subcutane ous INJECT 35 UNITS SUBCUTAN EOUSLY EVERY DAY AT BEDTIME (90 DAYS) 11/21 completed Not Available Not Available Not Available Fiasp U-100 Insulin 100 unit/mL subcutane ous solution INJECT 5 TO 10 UNITS SUBCUTAN EOULSY THREE TIMES DAILY BASED ON A SLIDING SCALE 06/14 completed Not Available Not Available Not Available Fiasp FlexTouch U-100 Insulin 100 unit/mL (3 mL) subcutane ous pen Inject 10 sliding scale doses 3 times a day by subcutan eous route before meal(s), for diabetes . 06/14 completed Not Available Not Available Not Available FreeStyle Amber 14 Day Sensor kit Use 1 sensor every 14 days. I month supply. Dx: E11.9 05/08 completed Not Available Not Available Not Available Gvoke HypoPen 2-Pack 0.5 mg/0.1 mL subcutane ous auto-inje ctor use as directed for hypoglyc emia 2024 active Not Available Not Available Not Avai lable Fluzone High-Dose Quad (PF) 240 mcg/0.7 mL IM syringe TO BE ADMINIST ERED BY PHARMACI ST FOR IMMUNIZA TION 09/08 completed Not Available Not Available Not Available insulin glargine- yfgn (U-100) 100 unit/mL (3 mL) subcutane ous pen INJECT 35 UNITS SUBCUTAN EOUSLY AT BEDTIME active Not Available Not Available No t Available Mounjaro 2.5 mg/0.5 mL subcutane ous pen injector Inject 2.5 mg every week by subcutan eous route for 30 days. 2024 active Not Available Not Available Not Avai lable Siena 2nd Gen Pen Needle 32 gauge x 5/32 USE FOUR TIMES DAILY DIRECTED 2024 active Not Available Not Available Not Avai lable Vitals Date Recorded Body height Body mass index (BMI) Body weight Heart rate Oxygen saturation Body temperature Systolic And Diastolic Provider Name and Address Organization Details Last Updated DateTime 179.07 cm 28.2 kg/m2 50863.6 8 g 100 /min 96 % 97.9 [degF] 132/86 mm[Hg] Melonie Carnesgavin Pope [place] [facility] 5 10:46:11 Social History Question Answer Notes LastModified by Organizat ion Details LastModified Time Tobacco Smoking Status Former Smoker Not Available [facility] 06/06/2020 03:36:36 Do You Have An Advance Directive? Yes [id number] Information not available 06/06/2020 Is Blood Transfusion Acceptable In An Emergency? Yes [id number] Information not available 06/06/2020 What Is Your Level Of Caffeine Consumption? None [id number] Information not available 06/06/2020 In The 14 Days Before Symptom Onset, Have You Had Close Contact With A Laboratory-confir med COVID-19 While That Case Was Ill? No [id number] Information not available 06/06/2020 In The 14 Days Before Symptom Onset, Have You Had Close Contact With A Person Who Is Under Investigation For COVID-19 While That Person Was Ill? No [id number] Information not available 06/06/2020 Have You Been To An Area Known To Be High Risk For COVID-19? No [id number] Information not available 06/06/2020 What Type Of Diet Are You Following? REGULAR [id number] Information not available 06/06/2020 Which Illicit Or Recreational Drugs Have You Used? None [id number] Information not available 06/06/2020 Live Alone Or With Others? With Others [email or web address] Information not available 05/17/2014 Do You Take Precautions To Prevent Distracted Driving? Yes [email or web address] Information not available 10/01/2016 How Often Do You Need To Have Someone Help You When You Read Instructions, Pamphlets, Or Other Written Material From Your Doctor Or Pharmacy? Never [email or web address] Information not available 09/26/2015 Have You Served In The ? No [email or web address] Information not available 10/01/2016 Have You Or Anyone In Your Household Had Any Of The Following Symptoms In The Last 14 Days: Sore Throat, Cough, Chills, Body Aches For Unknown Reasons, Shortness Of Breath For Unknown Reasons, Loss Of Smell, Loss Of Taste, Fever At Or Greater Than 100 Degrees Fahrenheit? No [email or web address] Information not available 02/15/2020 Are You Or Anyone In Your Household A Health Care Provider Or Emergency Responder? No [email or web address] Information not available 02/15/2020 To The Best Of Your Knowledge Have You Been In Close Proximity To Any Individual Who Tested Positive For COVID-19? No [email or web address] Information not available 02/15/2020 What Was The Date Of Your Most Recent Tobacco Screening? 10/13/2024 [email or web address] Information not available 10/13/2024 How Many Children Do You Have? 3 [employer] Sons [id number] Information not available 06/06/2020 Do You Use Protection During Sex? No [id number] Information not available 06/06/2020 Seat Belts Used Routinely Yes [email or web address] Information not available 09/26/2015 Are You Sexually Active? Yes [id number] Information not available 06/06/2020 Smoke Alarm In Home Yes [facility] Information not available 09/26/2015 Do You Use Sunscreen Routinely? No [id number] Information not available 06/06/2020 Sex: Female Functional Status Question Answer Note LastModified by Organizat ion Details LastModified Time What is your level of alcohol consumption? Occasional rarely [id number] Information not available 06/06/2020 Do you or have you ever used smokeless tobacco? Never used smokeless tobacco [id number] Information not available 06/06/2020 Are you currently employed? No [id number] Information not available 06/06/2020 Are you able to care for yourself independently? Yes [id number] Information not available 06/06/2020 Do you or have you ever used e-cigarettes or vape? Never used electronic cigarettes [id number] Information not available 06/06/2020 What is your exercise level? Occasional [id number] Information not available 06/06/2020 Mental Status None recorded. Family History Relationship Description Onset Age of this Age Resolved Age Notes LastModified by Organization Details LastModified Time Mother Hypertensive disorder 85 [email or web address] Not available 09/26 11:05:14 Mother Diabetes mellitus 85 [email or web address] Not available 0704/2019 11:39:48 Father Hypertensive disorder 79 [email or web address] Not available 09/26 11:05:14 Father Harmful pattern of use of alcohol 78 [email or web address] Not available 09/05 11:00:09 Sister Diabetes mellitus [email or web address] Not available 04/2019 11:39:51 Sister Dementia [email or web address] Not availa ble 10/13/2024 11:45:52 Brother Diabetes mellitus 62 on dialys is [email or web address] Not available 02/09/2019 11:40:13 Brother Malignant neoplasm of stomach [email or web address] Not available 10/02 11:45:35 Notes:4 sister and 3 brother s (2 sisters and 2 brothers ) Medical History No medical history recorded. Gynecological History Statement/Question Response Date of Last Pap Smear 12/05/2020 Date of Last Colonoscopy 04/26/2022 Most Recent Mammogram 10/02/2024 Obstetrics History GPAL:G 0 P 0 0 0 0 Immunizations Vaccine Type Date Status Note Provider Nam e and Address Organization Details Recorded Time Influenza, high-dose, trivalent, PF 5 completed KRISTINE KHANNA, [facility] [address] [facility] [address], [address] 05/25/2025 11:19:38 Influenza, split virus, trivalent, PF 5 completed Elizabeth kaufman, [facility] 05/01/2023 14:04:47 Influenza, split virus, quadrivalent, PF 8 completed Elizabeth kaufman [facility] 05/01/2023 14:04:47 Influenza, MDCK, quadrivalent, PF 9 completed Elizabeth kaufman, [facility] 05/01/2023 14:04:46 Influenza, high-dose, quadrivalent, PF 0 completed Elizabeth kaufman [facility] 05/01/2023 14:04:46 pneumococcal polysaccharide PPV23 5 completed Not Available [facility] 08/21/2019 02:21:42 COVID-19, mRNA, LNP-S, PF, 30 mcg/0.3 mL dose 1 completed Elizabeth kaufman [facility] 05/01/2023 14:04:47 COVID-19, mRNA, LNP-S, PF, 30 mcg/0.3 mL dose 1 completed Elizabeth Nair null, [facility] 05/01/2023 14:04:47 Influenza, high-dose, quadrivalent, PF 1 completed Elizabeth Nair null, [facility] 05/01/2023 14:04:46 COVID-19, mRNA, LNP-S, PF, 30 mcg/0.3 mL dose 1 completed Elizabeth Nair null, [facility] 05/01/2023 14:04:47 COVID-19, mRNA, LNP-S, bivalent, PF, 50 mcg/0.5 mL or 25mcg/0.25 mL dose 3 completed Elizabeth kaufman, [facility] 05/01/2023 14:04:47 Influenza, high-dose, quadrivalent, PF 2 completed Elizabeth kaufman, [facility] 05/01/2023 14:04:46 Pneumococcal conjugate PCV20, polysaccharide [id number] conjugate, adjuvant, PF 3 completed ANNIE Montez, [facility] 06/16/2024 10:58:24 COVID-19, mRNA, LNP-S, PF, 50 mcg/0.5 mL 3 completed ANNIE Montez, [facility] 06/16/2024 10:58:24 COVID-19, mRNA, LNP-S, PF, margie-sucrose, 30 mcg/0.3 mL 4 completed ANNIE Montez, [facility] 06/25/2024 10:38:45 Influenza, high-dose, trivalent, PF 4 completed ANNIE Montez, [facility] 06/25/2024 10:38:45 Tdap 5 completed Not Available [facility] 05/25/2025 10:33:28 COVID-19, mRNA, LNP-S, PF, margie-sucrose, 30 mcg/0.3 mL 5 completed Not Available [facility] 05/25/2025 10:33:28 zoster recombinant 5 completed Not Available [facility] 05/25/2025 10:33:28 Influenza, split virus, quadrivalent, PF 7 completed Not Available [facility] 08/21/2019 02:22:11 Influenza, split virus, trivalent, PF 4 completed Not Available [facility] 08/21/2019 02:21:57 Tdap 4 completed Not Available [facility] 08/21/2019 02:21:44 Pneumococcal conjugate PCV 13 0 completed Not Available [facility] 08/21/2019 02:21:41 Influenza, split virus, quadrivalent, PF 3 completed Chio Argueta MD [address], [address], [facility] 04/29/2023 17:26:37 Td (adult), 2 Lf tetanus toxoid, preservative free, adsorbed 4 completed Chio Argueta MD [address] [address], [place], [address], [facility] 09/10/2023 13:05:16 influenza, seasonal, intradermal, preservative free 2 completed Elizabeth kaufman, [facility] 05/01/2023 14:04:47 influenza, seasonal, intradermal, preservative free 3 completed [facility] kaufman, [facility] 05/01/2023 14:04:47 Influenza, high-dose, trivalent, PF 5 completed ANNIE Montez, [facility] [facility] 11/18/2024 14:52:23 Past Encounters Encounter ID Performer Location Encounter Start Date Encounter Closed Date Diagnosis/Indication Diagnosis SNOMED-CT Code Diagnosis ICD10 Code Diagnosis IMO Codes Diagnosis Note [id number] Gonaslo Hearn MD Main Office [address] [facility] [place] [id number] 05/25/2025 10:30:24 05/25/2025 11:19:46 Pain of knee region [id number] M25.561 M25.562 G89.29 [id number] - Patient has chronic intermitte nt bilateral knee pain. H+P most consistent with arthritis though patient has recent history of gout earlier this year. Lower suspicion for gout as pain is occurring bilaterall y (not monoarthri tis), no swelling on exam, no tenderness to touch, no warmth to touch.- Ordering uric acid and ESR/CRP to rule out gout. Patient had normal BAMBI and rheumatoid factor in December of this year. Treatment for gout may be indicated in the presence of elevated uric acid.- Limited pain management options given advanced CKD. Discussed possible benefits of PT. Patient reports she does exercises at home and is interested in additional pain management options such as joint injections . Referring to PMR at patient's request.- Advised to continue home exercises and other physical activity to promote mobility and reduce stiffness and pain.- Advised against ongoing use of Aleve or other NSAIDs due to CKD- RTC if worsening pain, swelling, erythema, tenderness to touch, or other concerns. Reviewed signs and symptoms that should prompt seeking emergency medical care. Patient demonstrat es understand ing of plan of care. Requires i nfluenza virus vaccination [id number] Health Concerns Section Related Observation LastModified by Organization Detai ls LastModified Time None Recorded Concern Status LastModified by Organization Details LastModified Time None Recorded Payers Encounter Date Sequence Insurance Name Policy Number Policy Knox Covered Member ID [place] Member ID Guarantor Name 05/25/2025 2 [employer] (MEDICARE SUPPLEMENT) Guillermina Hurst [id number] Guillermina Hurst 05/25/2025 1 MEDICARE [place]: [employer] Guillermina Hurst [id number] Guillermina Hurst Notes Date Note Type Note Provider Name and Address Organization Details Recorded Time 05/25/2025 text/html Musculoskeletal PainReported by PatientHPIFor quality, patient reportsaching(feels stiff). For adl (activities of daily living), patient reportsdo not improve with medication(was taking aleve without relief). For location, patient reportsbilateral knee. For severity, patient reportsimproving. For alleviating factors, patient reportsrelieved by changing position. For associated symptoms, patient reportsno fever,no weak limbs,no tingling, andno numbness of the legs/feet(not tender to touch or red. states that her knees appeared swollen at first but the swelling has gone down.). For duration, (this episode started 2 days ago. this has been going on for a long time and happens intermittently.). For context, (patient has known history of gout, diagnosed in december 2024. patient reports changing her diet to avoid inciting foods.patient has known history of arthritis.has not been to orthopedics, pt, or pain management for arthritis.no known injury or inciting event.). For aggravating factors, (worse after prolonged sitting (hurts to stand up). no pain when walking around.).ROS as noted in the HPI Guillermina is a 70 year old F with PMH of HTN, obesity, ischemic colitis, SBO s/p partial resection of colon, colostomy, CKD stage 3B, DM, JULIANA, hammer toe, gout, diabetic neuropathy. She is presenting today for bilateral knee pain. KRISTINE KHANNA, VERIFICATION LEAD-BC [id number] [address], [place], [address], [facility] 05/25/2025 17:00:50 OBGyn Episode No OBEpisode recorded.
--- OUTSIDE RECORDS SUMMARY | 2025-06-29 15:35 | XMS_ITS | Data Portability ---
Author Organization [facility], Main Office Address [address] [facility] [address] [place] [id number] Care Team Providers Care Pipe Line Walker Name Role Phone CHIO ARGUETA Primary Care Provider ADELAIDA JORDAN Orthopedic Surgeon [phone] DANILO MATHEWS Psychiatrist JOHN SERNA Orthopedic Surgeon [facility] Psychiatr ist ANNA CEDENO Circle Cutting Saw Operator HOLLY CLEMENTS Forensic Engineer MARIELENA JACK Analytics Intern FERNANDO CARRANZA Laser Engraver SERA FIORE Referring Provider JOSHUA BLACKBURN Broadcast Maintenance Technician HUMZA TAYLOR Card Grinder Assessment No assessment recorded. Plan of Treatment [...] Go To The Location Of Their Choice, [id number] 05/26/2025 06:08:16 inflam mation panel, serum or plasma 2024 025 ELROY [facility] (Centralized Electronic Ordering - All Locations), Patient Can Go To The Location Of Their Choice, [id number] 05/26/2025 06:08:15 hemogl obin A1C, finger stick 2024 [email or web address] In-Office Order, Internal Use Only DO Not Attach Compendium DO Not Attach Compendium, Do Not Delete/merge, [id number] 03/23/2025 11:26:39 rf (rheum atoid factor ), serum 2024 ELROY [facility] (Centralized Electronic Ordering - All Locations), Patient Can Go To The Location Of Their Choice, 12/29/2024 06:07:09 ESR (eryth rocyte sedime ntatio n rate), blood 2024 ELROY [facility] (Centralized Electronic Ordering - All Locations), Patient Can Go To The Location Of Their Choice, 12/29/2024 06:07:10 BAMBI (antin uclear antibo dies) screen , ifa, serum 2024 ELROY [facility] (Centralized Electronic Ordering - All Locations), Patient Can Go To The Location Of Their Choice, 12/29/2024 06:07:08 uric acid, serum or plasma 2024 025 ELROY [facility] (Centralized Electronic Ordering - All Locations), Patient Can Go To The Location Of Their Choice, 12/29/2024 06:07:10 C reacti ve protei n, QN, serum or plasma 2024 025 ELROY [facility] (Centralized Electronic Ordering - All Locations), Patient Can Go To The Location Of Their Choice, 12/29/2024 06:07:11 microa lbumin /creat inine, mass ratio, urine 2024 025 ELROY [facility] (Centralized Electronic Ordering - All Locations), Patient Can Go To The Location Of Their Choice, 10/15/2024 20:06:15 HbA1c (hemog lobin A1c), blood 2024 025 ELROY [facility] (Centralized Electronic Ordering - All Locations), Patient Can Go To The Location Of Their Choice, 10/15/2024 20:06:16 CMP, serum or plasma 2024 025 ELROY [facility] (Centralized Electronic Ordering - All Locations), Patient Can Go To The Location Of Their Choice, [id number] 10/15/2024 20:06:14 lipid panel, serum 2024 025 ELROY [facility] (Centralized Electronic Ordering - All Locations), Patient Can Go To The Location Of Their Choice, [id number] 10/15/2024 20:06:15 CBC w/ auto diff 2024 025 ELROY [facility] (Centralized Electronic Ordering - All Locations), Patient Can Go To The Location Of Their Choice, [id number] 10/15/2024 20:06:13 urinal ysis comple te, reflex cultur e 2024 025 ELROY [facility] (Centralized [facility] Ordering - All Locations), Patient Can Go To The Location Of Their Choice, [id number] 10/15/2024 20:06:14 rapid SARS CoV 2 Ag, QL IA, respir atory specim en 2023 024 [email or web address] In-Office Order, Internal Use Only DO Not Attach Compendium DO Not Attach Compendium, Do Not Delete/merge, [id number] 07/29/2024 10:04:50 Referral physic al medici ne and rehabi litati on referr bharat Barreto gulshan has chroni c interm ittent bilate ral knee pain, consis tent with arthri tis. Does have CKD, histor y of gout. Limite d pain manage ment option s. Estevan gaffney report s she does exerci ses at home and is intere sted in additi onal pain manage ment option s. 2024 JOE Wilson MD, [address], [place], [address], 05/26/2025 10:47:25 diabet ic ophtha lmolog y referr al 2024 JOE Clements MD, [address], [place], [address], 03/24/2025 10:59:02 nephro logist referr al - DM with CKD stg 3B. 2024 025 ELROY Taylor MD, [address] [facility] [address], [place], [address], 06/29/2025 11:44:27 nephro logist referr al - Stage 3 CKD in a patien t with HTN and DM2 2024 025 bay Taylor MD, [address] [facility] [address], [place], [address], 10/29/2024 09:27:48 Procedures None record ed. Surgeries None record ed. Imaging None record ed. Medication Orders lisino pril 20 mg-hyd rochlo rothia zide 25 mg tablet 2024 025 [email or web address] [facility], [address], [place], [id number], 03/23/2025 14:24:36 Mounja ro 2.5 mg/0.5 mL subcut aneous pen inject or 2024 025 ELROY [facility], [address], [place], [place], [id number], 03/25/2025 12:16:21 Glucag on Emerge ncy Kit 1 mg soluti on for inject ion 2024 025 [email or web address], [address] [place] [address], [address], 03/24/2025 17:10:29 flutic asone propio sheryl 50 mcg/ac tuatio n nasal spray, suspen kemal 2024 025 [facility] [address], [address] [place] [address], [address], 05/25/2025 10:50:48 codein e 10 mg-gua ifenes in 100 mg/5 mL oral liquid 2023 024 osmany [facility], [address] [facility], [place], [address], 05/25/2025 10:50:16 Patient TargetsNo targets recorded. Patient Instructions Encounter Date Encounter Id Patient Instructions Last Modified By Organization Details Last Modified Time 07/29/2024 [id number] learning about fever [email or web address] Not available 07/29/2024 10:04:50 cough: care instructions [email or web address] Not available 07/29/2024 10:03:46 upper respiratory infection (cold): care instructions [email or web address] Not available 07/29/2024 10:03:46 10/13/2024 [id number] allergies: care instructions [email or web address] Not available 10/13/2024 11:50:50 preventing falls: care instructions [email or web address] Not available 10/13/2024 11:50:49 well visit, over 65: care instructions [email or web address] Not available 10/13/2024 11:50:49 03/23/2025 [id number] hypoglycemia: care instructions Not available 03/23/2025 14:22:17 Medications (OTC, herbal therapies, supplements) reviewed and reconciled with patient and or caregiver, including potential side effects, drug interactions, instructions, and the consequences of not taking medication. Reviewed potential barriers to medication adherence, such as side effects from medication or cost of medication. Not available 03/23/2025 14:23:12 05/25/2025 [id number] knee arthritis: exercises [email or web address] Not available 05/25/2025 11:20:40 Medications (OTC, herbal therapies, supplements) reviewed and reconciled with patient and or caregiver, including potential side effects, drug interactions, instructions, and the consequences of not taking medication. Reviewed potential barriers to medication adherence, such as side effects from medication or cost of medication. [email or web address] Not available 05/25/2025 10:18:01 Reason for Referral Card Grinder Referral for Ch ronic kidney disease stage 3B Stage 3 CKD in a patient with HTN and DM2 Referring Physician: Chio Argueta, Family Medicine, Encounter Date: 10/13/2024 Diabetic Ophthalmology Refer ral for Renal disorder due to type 2 diabetes mellitus Referring Physician: Lucita Tellez, Internal Medicine, Encounter Date: 03/23/2025 Card Grinder Referral for Ch ronic kidney disease stage 3B DM with CKD stg 3B. Referring Physician: Lucita Tellez, Internal Medicine, Encounter Date: 03/23/2025 Physical Medicine And Rehabi litation Referral for Pain of knee region Patient has chronic intermittent bilateral knee pain, consistent with arthritis. Does have CKD, history of gout. Limited pain management options. Patient reports she does exercises at home and is interested in additional pain management options. Referring Physician: Kristine Schmitz, Family Medicine, Encounter Date: 05/25/2025 Results Created Date Observation Date Name Description Value Unit Range Abnormal Flag Note LastModifiedBy Organization Detail LastModifiedTime 07/29/20 24 07/29/2024 rapid SARS CoV 2 Ag, QL IA, respi rator y speci men RAPID SARS COV 2 negati ve Not Available In-Office Order Internal Use Only DO Not Attach Compendium DO Not Attach Compendium, Do Not Delete/merge, [id number] 07/29/2024 09:34:30 10/14/19 25 10/13/2024 CBC WITH DIFFE RENTI AL/PL ATELE T WBC 10.5 x10e3 /uL 3.4-10 .8 normal Not Available [facility] ([facility]) [address] [place], [address], 10/15/2024 20:06:13 10/14/19 25 10/13/2024 CBC WITH DIFFE RENTI AL/PL ATELE T RBC 4.93 x10e6 /uL 3.77-5 .28 normal Not Available [facility] ([facility]) [address] [place], [address], 10/15/2024 20:06:13 10/14/19 25 10/13/2024 CBC WITH DIFFE RENTI AL/PL ATELE T hemoglobin 13.3 g/dL 11.1-1 5.9 normal Not Available [facility] ([facility]) [address] [place], [address], 10/15/2024 20:06:13 10/14/19 25 10/13/2024 CBC WITH DIFFE RENTI AL/PL ATELE T hematocrit 39.5 % 34.0-4 6.6 normal Not Available [facility] ([facility]) [address] [facility], [place], [address], 10/15/2024 20:06:13 10/14/19 25 10/13/2024 CBC WITH DIFFE RENTI AL/PL ATELE T MCV 80 fL 79-97 normal Not Available [facility] ([facility]) [address] [place], [address], 10/15/2024 20:06:13 10/14/19 25 10/13/2024 CBC WITH DIFFE RENTI AL/PL ATELE T MCH 27.0 pg 26.6-3 3.0 normal Not Available [facility] ([facility]) [address] [facility], [place], [address], 10/15/2024 20:06:13 10/14/19 25 10/13/2024 CBC WITH DIFFE RENTI AL/PL ATELE T MCHC 33.7 g/dL 31.5-3 5.7 normal Not Available [facility] ([facility]) [address] [place], [address], 10/15/2024 20:06:13 10/14/19 25 10/13/2024 CBC WITH DIFFE RENTI AL/PL ATELE T RDW 14.6 % 11.7-1 5.4 Not Available [facility] ([facility]) [address] [place], [address], 10/15/2024 20:06:13 10/14/19 25 10/13/2024 CBC WITH DIFFE RENTI AL/PL ATELE T platelets 239 x10e3 /uL 150-45 0 normal Not Available [facility] ([facility]) [address] [place], [address], 10/15/2024 20:06:13 10/14/19 25 10/13/2024 CBC WITH DIFFE RENTI AL/PL ATELE T neutrophils 59 % not estab. normal Not Available [facility] ([facility]) [address] [facility], [place], [address], 10/15/2024 20:06:13 10/14/19 25 10/13/2024 CBC WITH DIFFE RENTI AL/PL ATELE T lymphs 26 % not estab. normal Not Available [facility] ([facility]) [address] [facility], [place], [address], 10/15/2024 20:06:13 10/14/19 25 10/13/2024 CBC WITH DIFFE RENTI AL/PL ATELE T monocytes 8 % not estab. normal Not Available [facility] ([facility]) [address] [facility], [place], [address], 10/15/2024 20:06:13 10/14/19 25 10/13/2024 CBC WITH DIFFE RENTI AL/PL ATELE T eos 5 % not estab. normal Not Available [facility] ([facility]) [address] [facility], [place], [address], 10/15/2024 20:06:13 10/14/19 25 10/13/2024 CBC WITH DIFFE RENTI AL/PL ATELE T basos 1 % not estab. normal Not Available [facility] ([facility]) [address] [facility], [place], [address], 10/15/2024 20:06:13 10/14/19 25 10/13/2024 CBC WITH DIFFE RENTI AL/PL ATELE T immature cells RACKMAN Not Available [facility] ([facility]) [address] [place], [address], 10/15/2024 20:06:13 10/14/19 25 10/13/2024 CBC WITH DIFFE RENTI AL/PL ATELE T neutrophils (absolute) 6.3 x10e3 /uL 1.4-7. 0 normal Not Available [facility] ([facility]) [address] [place], [address], 10/15/2024 20:06:13 10/14/19 25 10/13/2024 CBC WITH DIFFE RENTI AL/PL ATELE T lymphs (absolute) 2.8 x10e3 /uL 0.7-3. 1 normal Not Available [facility] ([facility]) [address] [place], [address], 10/15/2024 20:06:13 10/14/19 25 10/13/2024 CBC WITH DIFFE RENTI AL/PL ATELE T monocytes(ab solute) 0.8 x10e3 /uL 0.1-0. 9 normal Not Available [facility] ([facility]) [address] [place], [address], 10/15/2024 20:06:13 10/14/19 25 10/13/2024 CBC WITH DIFFE RENTI AL/PL ATELE T eos (absolute) 0.6 x10e3 /uL 0.0-0. 4 above high normal Not Available [facility] ([facility]) [address] [place], [address], 10/15/2024 20:06:13 10/14/19 25 10/13/2024 CBC WITH DIFFE RENTI AL/PL ATELE T baso (absolute) 0.1 x10e3 /uL 0.0-0. 2 normal Not Available [facility] ([facility]) [address] [place], [address], 10/15/2024 20:06:13 10/14/19 25 10/13/2024 CBC WITH DIFFE RENTI AL/PL ATELE T immature granulocytes 1 % not estab. Not Available [facility] ([facility]) [address] [place], [address], 10/15/2024 20:06:13 10/14/19 25 10/13/2024 CBC WITH DIFFE RENTI AL/PL ATELE T immature grans (abs) 0.1 x10e3 /uL 0.0-0. 1 Not Available [facility] ([facility]) [address] [facility], [place], [address], 10/15/2024 20:06:13 10/14/19 25 10/13/2024 CBC WITH DIFFE RENTI AL/PL ATELE T NRBC RACKMAN Not Available [facility] ([facility]) [address] [facility], [place], [address], 10/15/2024 20:06:13 10/14/19 25 10/13/2024 CBC WITH DIFFE RENTI AL/PL ATELE T hematology comments: RACKMAN Not Available [facility] ([facility]) [address] [facility], [place], [address], 10/15/2024 20:06:13 10/14/19 25 10/13/2024 COMP. METAB OLIC PANEL (14) glucose 113 mg/dL 70-99 above high normal Not Available [facility] ([facility]) [address] [facility], [place], [address], 10/15/2024 20:06:14 10/14/19 25 10/13/2024 COMP. METAB OLIC PANEL (14) BUN 27 mg/dL 8-27 normal Not Available [facility] ([facility]) [address] [facility], [place], [address], 10/15/2024 20:06:14 10/14/19 25 10/13/2024 COMP. METAB OLIC PANEL (14) creatinine 1.57 mg/dL 0.57-1 .00 above high normal Not Available [facility] ([facility]) [address] [facility], [place], [address], 10/15/2024 20:06:14 10/14/19 25 10/13/2024 COMP. METAB OLIC PANEL (14) eGFR 35 mL/mi n/1.7 3 >59 below low normal Not Available [facility] ([facility]) [address] [place], [address], 10/15/2024 20:06:14 10/14/19 25 10/13/2024 COMP. METAB OLIC PANEL (14) BUN/creatini ne ratio 17 12-28 normal Not Available [facility] ([facility]) [address] [place], [address], 10/15/2024 20:06:14 10/14/19 25 10/13/2024 COMP. METAB OLIC PANEL (14) sodium 141 mmol/ L 134-14 4 normal Not Available [facility] ([facility]) [address] [place], [address], 10/15/2024 20:06:14 10/14/19 25 10/13/2024 COMP. METAB OLIC PANEL (14) potassium 3.5 mmol/ L 3.5-5. 2 normal Not Available [facility] ([facility]) [address] [place], [address], 10/15/2024 20:06:14 10/14/19 25 10/13/2024 COMP. METAB OLIC PANEL (14) chloride 102 mmol/ L 96-106 normal Not Available [facility] ([facility]) [address] [place], [address], 10/15/2024 20:06:14 10/14/19 25 10/13/2024 COMP. METAB OLIC PANEL (14) carbon dioxide, total 20 mmol/ L 20-29 normal Not Available [facility] ([facility]) [address] [place], [address], 10/15/2024 20:06:14 10/14/19 25 10/13/2024 COMP. METAB OLIC PANEL (14) calcium 10.4 mg/dL 8.7-10 .3 above high normal Not Available [facility] ([facility]) [address] [facility] [place], [address], 10/15/2024 20:06:14 10/14/19 25 10/13/2024 COMP. METAB OLIC PANEL (14) protein, total 7.8 g/dL 6.0-8. 5 normal Not Available [facility] ([facility]) [address] [facility] [place], [address], 10/15/2024 20:06:14 10/14/19 25 10/13/2024 COMP. METAB OLIC PANEL (14) albumin 4.5 g/dL 3.9-4. 9 normal Not Available [facility] ([facility]) [address] [facility], [place], [address], 10/15/2024 20:06:14 10/14/19 25 10/13/2024 COMP. METAB OLIC PANEL (14) globulin, total 3.3 g/dL 1.5-4. 5 Not Available [facility] ([facility]) [address] [facility] [place], [address], 10/15/2024 20:06:14 10/14/19 25 10/13/2024 COMP. METAB OLIC PANEL (14) bilirubin, total 0.4 mg/dL 0.0-1. 2 normal Not Available [facility] ([facility]) [address] [facility] [place], [address], 10/15/2024 20:06:14 10/14/19 25 10/13/2024 COMP. METAB OLIC PANEL (14) alkaline phosphatase 97 IU/L 44-121 normal Not Available [facility] ([facility]) [address] [facility] [place], [address], 10/15/2024 20:06:14 10/14/19 25 10/13/2024 COMP. METAB OLIC PANEL (14) AST (SGOT) 32 IU/L 0-40 normal Not Available [facility] ([facility]) [address] [place], [address], 10/15/2024 20:06:14 10/14/19 25 10/13/2024 COMP. METAB OLIC PANEL (14) ALT (SGPT) 20 IU/L 0-32 normal Not Available [facility] ([facility]) [address] [place], [place], [address], 10/15/2024 20:06:14 10/14/19 25 10/14/2024 UA/M W/RFL X CULTU RE, ROUTI NE specific gravity 1.016 1.005- 1.030 normal Not Available [facility] ([facility]) [address] [place], [address], 10/15/2024 20:06:14 10/14/19 25 10/14/2024 UA/M W/RFL X CULTU RE, ROUTI NE pH 6.0 5.0-7. 5 normal Not Available [facility] ([facility]) [address] [place], [address], 10/15/2024 20:06:14 10/14/19 25 10/14/2024 UA/M W/RFL X CULTU RE, ROUTI NE urine-color Yellow yellow Not Available [facility] ([facility]) [address] [place], [address], 10/15/2024 20:06:14 10/14/19 25 10/14/2024 UA/M W/RFL X CULTU RE, ROUTI NE appearance Clear clear Not Available [facility] ([facility]) [address] [place], [address], 10/15/2024 20:06:14 10/14/19 25 10/14/2024 UA/M W/RFL X CULTU RE, ROUTI NE WBC esterase Trace negati ve abnormal Not Available [facility] ([facility]) [address], [place], [address], 10/15/2024 20:06:14 10/14/19 25 10/14/2024 UA/M W/RFL X CULTU RE, ROUTI NE protein Trace negati ve/tra ce Not Available [facility] ([facility]) [address] [facility], [place], [address], 10/15/2024 20:06:14 10/14/19 25 10/14/2024 UA/M W/RFL X CULTU RE, ROUTI NE glucose Negati ve negati ve Not Available [facility] ([facility]) [address] [place], [address], 10/15/2024 20:06:14 10/14/19 25 10/14/2024 UA/M W/RFL X CULTU RE, ROUTI NE ketones Negati ve negati ve Not Available [facility] ([facility]) [address] [place], [address], 10/15/2024 20:06:14 10/14/19 25 10/14/2024 UA/M W/RFL X CULTU RE, ROUTI NE occult blood Negati ve negati ve Not Available [facility] ([facility]) [address] [place], [address], 10/15/2024 20:06:14 10/14/19 25 10/14/2024 UA/M W/RFL X CULTU RE, ROUTI NE bilirubin Negati ve negati ve Not Available [facility] ([facility]) [address] [place], [address], 10/15/2024 20:06:14 10/14/19 25 10/14/2024 UA/M W/RFL X CULTU RE, ROUTI NE urobilinogen ,semi-qn 0.2 mg/dL 0.2-1. 0 normal Not Available [facility] ([facility]) [address] [place], [address], 10/15/2024 20:06:14 10/14/19 25 10/14/2024 UA/M W/RFL X CULTU RE, ROUTI NE nitrite, urine Negati ve negati ve Not Available [facility] ([facility]) [address] [facility], [place], [address], 10/15/2024 20:06:14 10/14/19 25 10/14/2024 UA/M W/RFL X CULTU RE, ROUTI NE microscopic examination See below: Micro scopi c was indic ated and was perfo rmed. Not Available [facility] ([facility]) [address] [facility], [place], [address], 10/15/2024 20:06:14 10/14/19 25 10/14/2024 UA/M W/RFL X CULTU RE, ROUTI NE WBC 0-5 /hpf 0 - 5 Not Available [facility] ([facility]) [address] [facility], [place], [address], 10/15/2024 20:06:14 10/14/19 25 10/14/2024 UA/M W/RFL X CULTU RE, ROUTI NE RBC 0-2 /hpf 0 - 2 Not Available [facility] ([facility]) [address] [facility], [place], [address], 10/15/2024 20:06:14 10/14/19 25 10/14/2024 UA/M W/RFL X CULTU RE, ROUTI NE epithelial cells (non renal) 0-10 /hpf 0 - 10 Not Available [facility] ([facility]) [address] [place], [address], 10/15/2024 20:06:14 10/14/19 25 10/14/2024 UA/M W/RFL X CULTU RE, ROUTI NE epithelial cells (renal) RACKMAN Not Available [facility] ([facility]) [address] [place], [address], 10/15/2024 20:06:14 10/14/19 25 10/14/2024 UA/M W/RFL X CULTU RE, ROUTI NE casts None seen /lpf none seen Not Available [facility] ([facility]) [address] [facility], [place], [address], 10/15/2024 20:06:14 10/14/19 25 10/14/2024 UA/M W/RFL X CULTU RE, ROUTI NE cast type RACKMAN Not Available [facility] ([facility]) [address] [facility], [place], [address], 10/15/2024 20:06:14 10/14/19 25 10/14/2024 UA/M W/RFL X CULTU RE, ROUTI NE crystals RACKMAN Not Available [facility] ([facility]) [address] [facility], [place], [address], 10/15/2024 20:06:14 10/14/19 25 10/14/2024 UA/M W/RFL X CULTU RE, ROUTI NE crystal type RACKMAN Not Available [facility] ([facility]) [address] [facility], [place], [address], 10/15/2024 20:06:14 10/14/19 25 10/14/2024 UA/M W/RFL X CULTU RE, ROUTI NE mucus threads RACKMAN Not Available [facility] ([facility]) [address] [facility], [place], [address], 10/15/2024 20:06:14 10/14/19 25 10/14/2024 UA/M W/RFL X CULTU RE, ROUTI NE bacteria None seen none seen/f ew Not Available [facility] ([facility]) [address] [facility], [place], [address], 10/15/2024 20:06:14 10/14/19 25 10/14/2024 UA/M W/RFL X CULTU RE, ROUTI NE yeast RACKMAN Not Available [facility] ([facility]) [address] [facility], [place], [address], 10/15/2024 20:06:14 10/14/19 25 10/14/2024 UA/M W/RFL X CULTU RE, ROUTI NE trichomonas RACKMAN Not Available [facility] ([facility]) [address] [facility], [place], [address], 10/15/2024 20:06:14 10/14/19 25 10/14/2024 UA/M W/RFL X CULTU RE, ROUTI NE comment RACKMAN Not Available [facility] ([facility]) [address] [facility], [place], [address], 10/15/2024 20:06:14 10/14/19 25 10/14/2024 UA/M W/RFL X CULTU RE, ROUTI NE microscopic examination RACKMAN Not Available [facility] ([facility]) [address] [facility], [place], [address], 10/15/2024 20:06:14 10/14/19 25 10/14/2024 UA/M W/RFL X CULTU RE, ROUTI NE urinalysis reflex Commen t This speci men has refle xed to a Urine Cultu re. Not Available [facility] ([facility]) [address] [facility], [place], [address], 10/15/2024 20:06:14 10/14/19 25 10/15/2024 UA/M W/RFL X CULTU RE, ROUTI NE urine culture, routine Final report Not Available [facility] ([facility]) [address] [facility], [place], [address], 10/15/2024 20:06:14 10/14/19 25 10/15/2024 UA/M W/RFL X CULTU RE, ROUTI NE result 1 COMMEN T Cultu re shows less than 10,00 0 colon y formi ng units of bacte jose per mitch liter of urine . This colon y count is not gener ally consi dered to be clini dameon signi seth t. Not Available [facility] ([facility]) [address] [place], [address], 10/15/2024 20:06:14 10/14/19 25 10/13/2024 LIPID PANEL cholesterol, total 115 mg/dL 100-19 9 normal Not Available [facility] ([facility]) [address] [place], [address], 10/15/2024 20:06:15 10/14/19 25 10/13/2024 LIPID PANEL triglyceride s 133 mg/dL 0-149 normal Not Available [facility] ([facility]) [address] [place], [address], 10/15/2024 20:06:15 10/14/19 25 10/13/2024 LIPID PANEL HDL cholesterol 58 mg/dL >39 normal Not Available [facility] ([facility]) [address] [place], [address], 10/15/2024 20:06:15 10/14/19 25 10/13/2024 LIPID PANEL VLDL cholesterol ina 23 mg/dL 5-40 Not Available [facility] ([facility]) [address] [place], [address], 10/15/2024 20:06:15 10/14/19 25 10/13/2024 LIPID PANEL LDL chol calc ([facility]) 34 mg/dL 0-99 Not Available [facility] ([facility]) [address] [place], [address], 10/15/2024 20:06:15 10/14/19 25 10/13/2024 LIPID PANEL LDL calc comment: RACKMAN Not Available [facility] ([facility]) [address] [place], [address], 10/15/2024 20:06:15 10/14/19 25 10/15/2024 ALBUM IN/CR EAT RATIO , RANDO M UR creatinine, urine 117.7 mg/dL not estab. normal Not Available [facility] ([facility]) [address] [facility], [place], [address], 10/15/2024 20:06:15 10/14/19 25 10/15/2024 ALBUM IN/CR EAT RATIO , RANDO M UR albumin, urine 10.5 ug/mL not estab. Not Available [facility] ([facility]) [address] [facility], [place], [address], 10/15/2024 20:06:15 10/14/19 25 10/15/2024 ALBUM IN/CR EAT RATIO , RANDO M UR alb/creat ratio 9 mg/g_ creat 0-29 Lilian l: 0 - 29 Moder ately incre ased: 30 - 300 Sever megan incre ased: >300 Not Available [facility] ([facility]) [address] [facility], [place], [address], 10/15/2024 20:06:15 10/14/19 25 10/14/2024 HEMOG LOBIN A1C hemoglobin A1C 6.3 % 4.8-5. 6 above high normal Predi abete s: 5.7 - 6.4 Diabe luigi: >6.4 Glyce vera contr ol for adult s with diabe luigi: <7.0 Not Available [facility] ([facility]) [address] [facility], [place], [address], 10/15/2024 20:06:16 12/22/19 25 12/24/2024 ANTI- NUCLE AR AB BY IFA (RDL) anti-nuclear Ab by ifa (rdl) Negati ve negati ve Not Available [employer] [address] [place] [address], [address], 12/29/2024 06:07:08 12/22/19 25 12/29/2024 ANTI- NUCLE AR AB BY IFA (RDL) anti-RO (ss-A) Ab (rdl) <20 units <20 Not Available [facility] [employer] [facility] [address] [facility], [place], [address], 12/29/2024 06:07:08 12/22/19 25 12/22/2024 RHEUM ATOID FACTO R (RF) rheumatoid factor (rf) <10.0 IU/mL <14.0 Not Available [facility] ([facility]) [address] [facility], [place], [address], 12/29/2024 06:07:09 12/22/19 25 12/22/2024 URIC ACID uric acid 9.1 mg/dL 3.0-7. 2 above high normal Thera blossom jacobo t for gout patie nts: <6.0 Not Available [facility] ([facility]) [address] [place], [address], 12/29/2024 06:07:10 12/22/19 25 12/22/2024 SEDIM ENTAT ION RATE- WESTE RGREN sedimentatio n rate-westerg kang 73 mm/HR 0-40 above high normal Not Available [facility] ([facility]) [address] [place], [address], 12/29/2024 06:07:10 12/22/19 25 12/22/2024 C-LETICIA CTIVE PROTE IN, QUANT C-reactive protein, quant 4 mg/L 0-10 normal Not Available [facility] ([facility]) [address] [place], [address], 12/29/2024 06:07:11 03/23/20 25 03/23/2025 hemog lobin A1C, finge rstic k A1C 7.1 % 4-6 abnormal Not Available In-Office Order Internal Use Only DO Not Attach Compendium DO Not Attach Compendium, Do Not Delete/merge, [id number] 03/23/2025 10:41:58 05/25/20 25 05/25/2025 ESR-W ES+CR P sedimentatio n rate-westerg kang 95 mm/HR 0-40 above high normal Not Available [facility] ([facility]) [address] [facility], [place], [address], 05/26/2025 06:08:15 05/25/20 25 05/26/2025 ESR-W ES+CR P C-reactive protein, quant 32 mg/L 0-10 above high normal Not Available [facility] ([facility]) [address] [facility], [place], [address], 05/26/2025 06:08:15 05/25/2005/26/2025 URIC ACID uric acid 10.8 mg/dL 3.1-7. 9 above high normal Thera peuti c targe t for gout patie nts: <6.0 Not Available [facility] ([facility]) [address] [facility], [place], [address], 05/26/2025 06:08:16 10/03/19 25 10/02/2024 MAMMO , scree delaney, digit al, bilat eral 2 Bilate ral full field digita l breast tomosy nthesi s perfor med on a Hologi c Seleni a dimens ion with I CAD second look 7.2-H comput er aided detect ion dated October 02, 2024. Compar cody films are from ry 2023 and r y 2021. HISTOR Y: Breast cancer screen ing. Densit y: There are scatte red areas of fibrog landul ar densit y. FINDIN GS: No suspic ious mass, nodule , mila ectura l distor tion or groupe d microc alcifi cation s are seen. No skin thicke delaney or nipple retrac tion is apprec iated. IMPRES KEMAL: No mammog raphic eviden ce of malign garrett and no signif icant interv al change . Recomm endati on: Routin e annual mammog raphic screen ing. Examin ation [id number] and G0202. BI-RAD S one negati ve. Letter L3. Thank you for allowi ng me to partic ipate in the care of this patien t. WSN: [id number] Orderbooker ponce Physic jesús: Chio De Los Santos Dictat ed By: Chandana Carlisle MD Dictat ed Date/T laura: 3:22 pm Review ed By: Chandana Carlisle MD Signed By: Chandana Carlisle MD Signed Date/T laura: 3:22 pm Transc ribed By: DEON Transc riptio n Date/T laura: 3:21 pm Birads : Patien t Class: Outpat ient [facility] ([facility]) [address] [place] [address], [address], 10/04/2024 15:10:51 Result Notes Documentation Provider Name and Address Organization Details Recorded Time Mammo, Screening, Digital, Bilateral : 2 Bilateral full field digital breast tomosynthesis performed on a [employer] dimension with I CAD second look 7.2-H computer aided detection dated October 02, 2024. Comparison films are from September 27, 2023 and September 02, 2021. HISTORY: Breast cancer screening. Density: There are scattered areas of fibroglandular density. FINDINGS: No suspicious mass, nodule, architectural distortion or grouped microcalcifications are seen. No skin thickening or nipple retraction is appreciated. IMPRESSION: No mammographic evidence of malignancy and no significant interval change. Recommendation: Routine annual mammographic screening. Examination 70235 and G0202. BI-RADS one negative. Letter L3. Thank you for allowing me to participate in the care of this patient. WSN: [id number] Ordering Physician: Chio Argueta Dictated By: Chandana Carlisle MD Dictated Date/Time: 10/02/24 3:22 pm Reviewed By: Chandana Carlisle MD Signed By: Chandana Carlisle MD Signed Date/Time: 10/02/24 3:22 pm Transcribed By: DEON Production Boring Machine Operator Date/Time: 10/02/24 3:21 pm Birads: Patient Class: Outpatient Lisa kaufman [facility] 10/04/2024 15:10:51 Problems Name Problem SNOMED Code Status Onset Date Resolution Date Notes Provider Name and Address Organization Details Recorded Time Type 2 diabetes mellitus without complica tion 694164238 Completed 10/26/2019 This has resolved since weight loss; not currentl y on meds 09/2015. Lucita Tellez PA-C [address] [facility] [address], [place], [address] , [facility] 0 11:10:16 Multiple congenit al cysts of kidney 28946741 Active Stable on CT. Not Available [facility] 3 13:34:14 Malaise and fatigue 561746338 Active Not Available [facility] 3 13:34:14 Sciatica 95777945 Active Not Available [facility] 3 13:34:14 Diarrhea 93864070 Completed 10/26/2019 Lucita Tellez PA-C [address] [facility] [address], [place], [address] , [facility] 0 11:10:01 Degenera tion of lumbar interver tebral disc 50534752 Active seen by [facility] and also followed by Dr Serna Not Available [facility] 3 13:34:14 Type 2 diabetes mellitus 14908783 Completed 10/05/2014 Chio Argueta MD [address] [facility] [address], [place], [address] , [facility] 1 11:31:05 Ischemic colitis 32399152 Active had parital colectom y Not Available [facility] 3 13:34:14 Onychomy cosis 694563818 Active Followed by De Teodoro Not Available [facility] 3 13:34:14 Hammer toe 407935450 Active Followed by De Teodoro Not Available [facility] 3 13:34:14 Ingrowin g nail 416636010 Active Followed by De Teodoro Not Available [facility] 3 13:34:14 Abdomina l pain 91581374 Active Not Available [facility] 3 13:34:14 Advance directiv e discusse d with patient 155527285 Active Not Available [facility] 3 13:34:14 Type 2 diabetes mellitus 53300070 Completed 02/03/2018 Chio Argueta MD [address] [facility] [address], [place], [address] , [facility] 1 11:31:05 Kidney disease 30032928 Active Not Available [facility] 3 13:34:14 Type 2 diabetes mellitus 67249906 Completed 03/22/2021 Chio Argueta MD [address] [facility] [address], [place], [address] , [facility] 1 11:31:05 Colostom y and enterost aj malfunct ion 191044816 Active Not Available [facility] 3 13:34:14 Tobacco dependen ce syndrome 12533602 Completed 08/28/2022 pt quit ABIMBOLA TREVINO MD [address] [facility] [address], [place], [address] , [facility] 3 16:15:46 General examinat ion of patient Completed 200702/22/2014 RECORDED 04/25/20 08 12:38PM BY PRINCE LU MA, ANNOTATI ON/MARISABEL Argueta MD [address] [facility] [address], [place], [address] , [facility] 6 16:57:14 General examinat ion of patient Completed 200703/14/2014 RECORDED 04/25/20 08 12:38PM BY PRINCE LU MA, ANNOTATI ON/MARISABEL Argueta MD [address] [facility] [address], [place], [address] , [facility] 6 16:57:14 Essentia l hyperten kemal 43764202 Completed 201102/22/2014 RECORDED 10/29/19 12 10:22AM BY PRINCE LU MA, ANNOTATI ON/ADDEN DUM Lucita Geoff SY [address], [place], [address] , [facility] 5 14:23:35 Estuardo sommer 47115837 Completed 201103/14/2014 RECORDED 10/29/19 12 10:22AM BY PRINCE LU MA, ANNOTATI ON/ADDEN DUM Lucita Geoff SY [address], [place], [address] , [facility] 5 14:23:35 Screenin g for malignan t neoplasm of breast Completed 201102/22/2014 RECORDED 05/04/20 12 9:25AM BY ANAMIKA ORONA ON/ADDEN DUM Chio Argueta MD [address], [place], [address] , [facility] 6 16:57:14 Screenin g for malignan t neoplasm of cervix Completed 201102/22/2014 RECORDED 05/04/20 12 9:25AM BY ANAMIKA ORONA ON/ADDEN DUM Chio Argueta MD [address] [facility] [address], [place], [address] , [facility] 6 16:57:14 Screenin g for malignan t neoplasm of colon Completed 201102/22/2014 RECORDED 05/04/20 12 9:25AM BY ANAMIKA ORONA ON/ADDEN RAFAELA Argueta MD [address], [place], [address] , [facility] 6 16:57:14 Edema 639763239 Completed 201102/22/2014 RECORDED 05/04/20 12 9:25AM BY ANAMIKA ORONA ON/MARISABEL Argueta MD [address], [place], [address] , [facility] 6 16:57:14 Eruption [id number] Completed 201102/22/2014 RECORDED 05/04/20 12 9:25AM BY ANAMIKA ORONA ON/MARISABEL Argueta MD [address], [place], [address] , [facility] 6 16:57:14 Adult health examinat ion Completed 201102/22/2014 RECORDED 05/04/20 12 9:25AM BY ANAMIKA ORONA ON/MARISABEL Argueta MD [address] [facility] [address], [place], [address] , [facility] 6 16:57:14 Screenin g for malignan t neoplasm of breast Completed 201103/14/2014 RECORDED 05/04/20 12 9:25AM BY ANAMIKA ORONA ON/MARISABEL Argueta MD [address] [facility] [address], [place], [address] , [facility] 6 16:57:14 Screenin g for malignan t neoplasm of cervix Completed 201103/14/2014 RECORDED 05/04/20 12 9:25AM BY ANAMIKA ORONA ON/MARISABEL Argueta MD [address], [place], [address] , [facility] 6 16:57:14 Screenin g for malignan t neoplasm of colon Completed 201103/14/2014 RECORDED 05/04/20 12 9:25AM BY ANAMIKA ORONA ON/MARISABEL Argueta MD [address], [place], [address] , [facility] 6 16:57:14 Edema [id number] Completed 201103/14/2014 RECORDED 05/04/20 12 9:25AM BY ANAMIKA ORONA ON/ADDEN DUM Chio Argueta MD [address] [facility] [address], [place], [address] , [facility] 6 16:57:14 Eruption [id number] Completed 201103/14/2014 RECORDED 05/04/20 12 9:25AM BY ANAMIKA ORONA ON/ADDZUHAIR Argueta MD [address] [facility] [address], [place], [address] , [facility] 6 16:57:14 Obesity 088045492 Completed 201202/22/2014 RECORDED 11/05/19 13 9:08AM BY ANAMIKA ORONA ON/ADDEN DUM Abbie Villafana null, [facility] 9 11:56:06 Obesity 406894583 Completed 201203/14/2014 RECORDED 11/05/19 13 9:08AM BY ANAMIKA ORONA ON/ADDEN DUM Abbie Villafana null, [facility] 9 11:56:06 Partial resectio n of colon Active 2012 Not Available [facility] 3 13:34:14 Noninfec tious gastroen teritis 72552289 Completed 201202/22/2014 RECORDED 05/13/20 13 8:44AM BY ANAMIKA ORONA ON/MARISABEL Argueta MD [address] [facility] [address], [place], [address] , [facility] 6 16:57:14 Influenz a vaccine needed 44216175815 06 Completed 201202/22/2014 RECORDED 05/13/20 13 9:10AM BY MERE HIGHTOWER I, OFFICE VISIT Chio Argueta MD [address] [facility] [address], [place], [address] , [facility] 6 16:57:14 Noninfec tious gastroen teritis 15865588 Completed 201203/14/2014 RECORDED 05/13/20 13 8:44AM BY MERE HIGHTOWER I, ANNOTATI ON/ADDEN RAFAELA Argueta MD [address] [facility] [address], [place], [address] , [facility] 6 16:57:14 Influenz a vaccine needed 09009003185 06 Completed 201203/14/2014 RECORDED 05/13/20 13 9:10AM BY MERE HIGHTOWER I, OFFICE VISIT Chio Argueta MD [address] [facility] [address], [place], [address] , [facility] 6 16:57:14 Patient status finding [id number] Completed 201202/22/2014 RECORDED 05/19/20 13 12:57PM BY GUALBERTO HELTON MA, ANNOTATI ON/MARISABEL Argueta MD [address] [facility] [address], [place], [address] , [facility] 6 16:57:14 Patient status finding [id number] Completed 201203/14/2014 RECORDED 05/19/20 13 12:57PM BY GUALBERTO HELTON MA, ANNOTATI ON/MARISABEL Argueta MD [address] [facility] [address], [place], [address] , [facility] 6 16:57:14 Laborato ry procedur e performe d 594199634 Completed 201202/22/2014 RECORDED 06/16/20 13 12:59PM BY MERE HIGHTOWER I, ANNOTATI ON/MARISABEL Argueta MD [address], [place], [address] , [facility] 6 16:57:14 Laborato ry procedur e performe d 875617763 Completed 201203/14/2014 RECORDED 06/16/20 13 12:59PM BY MERE HIGHTOWER I, ANNOTATI ON/MARISABEL Argueta MD [address], [place], [address] , [facility] 6 16:57:14 Follow-u p encounte r Completed 201302/22/2014 RECORDED 08/09/19 14 10:30AM BY JORGE HAMMOND MA, ANNOTATI ON/MARISABEL Argueta MD [address] [facility] [address], [place], [address] , [facility] 6 16:57:14 Knee pain Completed 201302/22/2014 RECORDED 08/09/19 14 10:30AM BY JORGE HAMMOND MA, ANNOTZEENAT ON/MARISABEL Argueta MD [address] [facility] [address], [place], [address] , [facility] 6 16:57:14 Follow-u p encounte r Completed 201303/14/2014 RECORDED 08/09/19 14 10:30AM BY JORGE HAMMOND MA, ANNOTATI ON/MARISABEL Argueta MD [address] [facility] [address], [place], [address] , [facility] 6 16:57:14 Knee pain Completed 201303/14/2014 RECORDED 08/09/19 14 10:30AM BY JORGE HAMMOND MA, ANNOTATI ON/MARISABEL Argueta MD [address] [facility] [address], [place], [address] , [facility] 6 16:57:14 Attentio n to colostom y Completed 201302/22/2014 IMPRESSI ON: SHE IS DOING WELL WITH OTC IMMODIUM ; SCHEDULE D FOR A TAKEDOWN IN 4 DAYS.; RECORDED 09/06/19 14 8:20AM BY CARLOS ALBERTO ORONAATI ON/MARISABEL Argueta MD [address] [address], [place], [address] , [facility] 6 16:57:14 Attentio n to colostom y Completed 201303/14/2014 IMPRESSI ON: SHE IS DOING WELL WITH OTC IMMODIUM ; SCHEDULE D FOR A TAKEDOWN IN 4 DAYS.; RECORDED 09/06/19 14 8:20AM BY ANAMIKA ORONA ON/MARISABEL Argueta MD [address] [address], [place], [address] , [facility] 6 16:57:14 History of gastroin testinal disease 648059378 Completed 201302/22/2014 IMPRESSI ON: SHE HAD A TAKEDOWN DONE ABOUT 3 WEEKS AGO AND HAS SOME ABDOMINA L PAIN BUT IS DOING BETTER.; RECORDED 10/13/19 14 8:19AM BY ANAMIKA ORONA ON/MARISABEL Argueta MD [address] [facility] [address], [place], [address] , [facility] 6 16:57:14 History of gastroin testinal disease 451972695 Completed 201303/14/2014 IMPRESSI ON: SHE HAD A TAKEDOWN DONE ABOUT 3 WEEKS AGO AND HAS SOME ABDOMINA L PAIN BUT IS DOING BETTER.; RECORDED 10/13/19 14 8:19AM BY CARLOS ALBERTO ORONAATI ON/MARISABEL Argueta MD [address] [address], [place], [address] , [facility] 6 16:57:14 Diarrhea 43866462 Completed 201302/22/2014 IMPRESSI ON: SECONDAR Y TO ILEUM AND COLON RESECTIO N. WILL DO A TRIAL OF AN ANTIDIAR RHEAL TO SEE IF THIS REDUCES HER FREQUENC Y.; RECORDED 12/07/19 14 11:21AM BY MERE HIGHTOWER I, ANNOTATI ON/ADDEN DUM Lucita Tellez PA-C [address] [facility] [address], [place], [address] , [facility] 0 11:10:01 Pain of hip region 76134431 Completed 201302/22/2014 IMPRESSI ON: SECONDAR Y TO L5 RADICULO ELVIS; FOLLOWED BY PSSP.; RECORDED 12/07/19 14 11:21AM BY MERE HIGHTOWER I, ANNOTATI ON/ADDEN DUM Chio Argueta MD [address] [facility] [address], [place], [address] , [facility] 6 16:57:14 Ill-defi dejah disease Completed 201302/22/2014 IMPRESSI ON: SHE HAS BEEN OOW SINCE HER ICU ADMISSIO N AND SURGERY LAST YEAR. WE WILL SEND HER TO OT FOR AN EVALUATI ON CONCERNI NG HER PHYSICAL ABILITIE S TO HELP DETERMIN E DISABILI TY LEVEL.; RECORDED 12/07/19 14 11:21AM BY MERE HIGHTOWER I, CARLOS ALBERTOATI ON/ADD DUM Chio Argueta MD [address] [facility] [address], [place], [address] , [facility] 6 16:57:14 Patient status finding [id number] Completed 201305/17/2014 RECORDED 12/07/19 14 11:33AM BY MERE HIGHTOWER I, OFFICE VISIT Chio Argueta MD [address] [facility] [address], [place], [address] , [facility] 6 16:57:14 Pain of hip region 69936480 Completed 201303/14/2014 IMPRESSI ON: SECONDAR Y TO L5 RADICULO ELVIS; FOLLOWED BY PSSP.; RECORDED 12/07/19 14 11:21AM BY MERE HIGHTOWER I, ANNOTATI ON/MARISABEL Argueta MD [address] [facility] [address], [place], [address] , [facility] 6 16:57:14 Ill-defi dejah disease Completed 201303/14/2014 IMPRESSI ON: SHE HAS BEEN OOW SINCE HER ICU ADMISSIO N AND SURGERY LAST YEAR. WE WILL SEND HER TO OT FOR AN EVALUATI ON CONCERNI NG HER PHYSICAL ABILITIE S TO HELP DETERMIN E DISABILI TY LEVEL.; RECORDED 12/07/19 14 11:21AM BY MERE HIGHTOWER I, ANNOTATI ON/MARISABEL Argueta MD [address] [facility] [address], [place], [address] , [facility] 6 16:57:14 Liver function tests outside referenc e range 162687233 Completed 201305/17/2014 RECORDED 01/07/20 14 11:22AM BY MERE HIGHTOWER I, OFFICE VISIT Chio Argueta MD [address] [facility] [address] [facility], [place], [address] , [facility] 6 16:57:14 Hypercal cemia 08434772 Completed 201305/17/2014 IMPRESSI ON: PROBABLY SECONDAR Y TO RENAL FAILURE; RECORDED 01/07/20 14 11:22AM BY MERE HIGHTOWER I, OFFICE VISIT Chio Argueta MD [address] [facility] [address], [place], [address] , [facility] 6 16:57:14 Hypokale nadine 20216868 Completed 201305/17/2014 RECORDED 01/07/20 14 11:22AM BY MERE HIGHTOWER I, OFFICE VISIT Chio Argueta MD [address] [facility] [address] [facility], [place], [address] , [facility] 6 16:57:14 Acidosis 83891482 Completed 201305/17/2014 IMPRESSI ON: WITH AN INCREASE D ANION GAP C/W RENAL FAILURE. ; RECORDED 01/07/20 14 11:22AM BY MERE HIGHTOWER I, OFFICE VISIT Chio Argueta MD [address] [facility] [address], [place], [address] , [facility] 6 16:57:14 Disorder of intestin e 91088888 Completed 201305/17/2014 STORY: ADMITTED AND HAD SURGERY DONE ON NECROTIC INTESTIN ES.; RECORDED 01/07/20 14 11:22AM BY MERE HIGHTOWER I, OFFICE VISIT Chio Argueta MD [address] [address], [place], [address] , [facility] 6 16:57:14 Disorder of kidney and/or ureter 038133124 Completed 201305/17/2014 IMPRESSI ON: DOING BETTER SINCE D/C; SHE IS DRINKING PLENTY OF FLUIDS AND TAKING FIBER; SHE HAS A F/U WITH GI WELL WITH RENAL.; RECORDED 01/07/20 14 11:22AM BY MERE HIGHTOWER I, OFFICE VISIT Chio Argueta MD [address] [address], [place], [address] , [facility] 6 16:57:14 Adult health examinat ion Completed 201305/17/2014 RECORDED 01/07/20 14 11:22AM BY MERE HIGHTOWER I, OFFICE VISIT Chio Argueta MD [address] [address], [place], [address] , [facility] 6 16:57:14 Multiple congenit al cysts of kidney 58761907 Completed 201303/14/2014 RECORDED 01/07/20 14 9:05AM BY MERE HIGHTOWER I, ANNOTATI ON/MARISABEL Argueta MD [address], [place], [address] , [facility] 6 16:57:14 Degenera tion of interver tebral disc Completed 201303/14/2014 IMPRESSI ON: FOLLOWED BY [facility]SSP AND DOING PT WHICH HAS NOT BEEN HELPING. ; RECORDED 01/07/20 14 9:05AM BY MERE HIGHTOWER I, ANAMIKA ON/MARISABEL Argueta MD [address], [place], [address] , [facility] 6 16:57:14 Allergic rhinitis 54923933 Active 2016 Not Available [facility] 3 13:34:14 Stenosin g tenosyno vitis 08281573 Active 2016 right thumb; schedule d for surgery with Dr Jordan Not Available [facility] 3 13:34:14 Obesity 720198295 Active 2018 Not Available [facility] 3 13:34:14 Chronic kidney disease stage 2 918133369 Completed 201810/26/2019 Lucita Tellez PA-C [address] [facility] [address], [place], [address] , [facility] 0 10:41:53 Low back pain 731310910 Active 2018 Followed by [facility] and on chronic narcotic s.. Post-amanda inectomy syndrome . Not Available [facility] 3 13:34:14 Long-ter m current use of insulin 453625904 Active 2019 Not Available [facility] 3 13:34:14 Small bowel obstruct ion 738285256 Active 2019 Not Available [facility] 3 13:34:14 Diabetic peripher al neuropat hy 503009129 Active 2019 Not Available [facility] 3 13:34:14 Hyperten sive renal disease 04156474 Active 2020 Not Available [facility] 3 13:34:14 Chronic kidney disease stage 2 due to type 2 diabetes mellitus 88085637953 1 Completed 202003/22/2021 Chio Argueta MD [address] [facility] [address], [place], [address] , [facility] 1 11:30:46 Renal disorder due to type 2 diabetes mellitus 919330544 Active 2020 Not Available [facility] 3 13:34:14 Iron deficien cy anemia 33309709 Active 2021 Not Available [facility] 3 13:34:14 Chronic kidney disease stage 3B 758226500 Active 2023 Chio Argueta MD [address] [facility] [address], [place], [address] , [facility] 4 09:46:25 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 97017895240 9108 Active 2024 Chio Argueta MD [address] [facility] [address], [place], [address] , [facility] 5 07:31:54 [facility] hyperten kemal 96498480 Active 2024 RECORDED 10/29/19 12 10:22AM BY PRINCE LU MA, ANNOTATI ON/MARISABEL Tellez PA-C [address] [facility] [address], [place], [address] , [facility] 5 14:23:34 Pain of knee region 2945577378 Active 2024 VICKIE DOMINIQUE [address] [facility] [address], [place], [address] , [facility] 5 11:02:47 Gouty arthriti s 60976902 Active 2024 VICKIE DOMINIQUE [address] [facility] [address], [place], [address] , [facility] 09:13:39 Problem Notes None recorded. Procedures Surgical History Date Name Laterality Status Provider Name and Address Organization Details Recorded Time 025 Diabetic Foot Exam (Monofilament) completed Chio Argueta MD [address] [address], [place], [address], [facility] 12/21/2024 15:18:30 025 Most Recent Mammogram completed Lisa Mcdermott [facility] 10/04/2024 15:10:45 025 Mammogram Screening completed Lisa Mcdermott [facility] 10/04/2024 15:10:28 024 diabetic retinopathy screening completed Elizabeth Nair [facility] 11/13/2023 08:33:25 024 Advanced Care Planning completed Chio Argueta MD [address] [address], [place], [address], [facility] 09/09/2023 15:08:14 024 Diabetic Foot Exam (Monofilament) completed Chio Argueta MD [address] [address], [place], [address], [facility] 09/09/2023 15:08:18 022 Date of Last Colonoscopy completed Wendi Villafana [facility] 05/01/2022 14:00:37 022 Colonoscopy completed Wendi Villafana [facility] 05/01/2022 14:00:28 021 Diabetic Foot Exam (Monofilament) completed Chio Argueta MD [address] [address], [place], [address], [facility] 03/22/2021 11:38:44 021 Date of Last Pap Smear completed Prerna Tao [facility] 12/28/2020 14:04:45 020 Diabetic Foot Exam (Monofilament) completed Chio Argueta MD [address], [address], [facility] 02/15/2020 12:53:11 020 Six-Item Cognitive Test completed Wilma Colorado [facility] 02/15/2020 11:05:31 020 Flexible Sigmoidoscopy completed Meredith Beth [facility] 01/12/2020 10:17:58 019 Diabetic Foot Exam (Monofilament) completed Mayte Granado [facility] 04/14/2019 10:34:46 018 simple tenolysis of flexor tendon of palm completed Chio Argueta MD [address], [address], [facility] 02/09/2019 11:42:43 018 revision of tenolysis completed Elise Castellon [facility] 06/08/2018 14:01:23 018 Mini-Cog Test completed Mere Dodge [facility] 11/04/2017 11:19:18 017 Mini-Cog Test completed Mere Dodge [facility] 10/01/2016 10:10:06 016 Advanced Care Planning completed Mere Dodge [facility] 09/26/2015 11:00:09 014 Gastrointestinal Surgery completed Chio Argueta MD [address], [address], [facility] 05/18/2014 12:51:48 014 Back Surgery completed Chio Argueta MD [address], [address], [facility] 05/27/2014 13:23:02 013 Gastrointestinal Surgery completed Chio Argueta MD [address] [place], [address], [facility] 05/18/2014 12:51:48 Imaging Results None recorded. Procedure Notes None recorded. Medical Equipment None Reported. Allergies Allergen ID Allergen Name Allergen Category Reaction Reaction Severity Criticality Documentation Date Start Date Code Code System Note Provider Name and Address Organization Details Recorded Time 9602 No known allergy (situatio n) Not available Not available Not available Not available 02/15/2014 84169 6003 [facility]AN [facility] [address] [facility] [address], [place], [address], [facility] 6 20:36:54 No known drug allergies Medications [...] unit/mL subcutane ous solution QD active RECORDED 12/10/19 14 1:03PM BY CHIO LARA [...] 90 days. 09/30 completed has diltiaze m KRISTIN. Not Available Not Available Not Available omeprazol [...] Not Available Not Available Not Avai lable K-Dur 10 mEq tablet,ex tended release [...] 13 10:51AM BY CHIO LARA MD, ANNOTATI ON/MARISABEL DUM; [...] Not Available Not Available Not Available Pen [place] AT BEDTIME 12/09 completed RECORDED 12/10/19 14 [...] DAILY 2023 active Not Available Not Available Not Avai lable [facility] Lancet THREE TIMES DAILY 12/09 completed RECORDED 12/10/19 14 1:03PM BY CHIO LARA MD, ANAMIKA ON/ADDEN DUM; Not Available Not Available Not Available [facility] Redi-Code Glucose Monitor THREE TIMES DAILY 12/09 completed RECORDED 12/10/19 14 1:03PM BY CHIO LARA MD, ANAMIKA ON/ADDEN DUM; Not Available Not Available Not Available [facility] Redi-Code DAILY 12/09 completed RECORDED 12/10/19 14 1:03PM BY CHIO LARA MD, ANAMIKA ON/ADDEN DUM; Not Available Not Available Not [...] Not Available Not Available Not Available Radha LeosPen U-100 Insulin 100 unit/mL (3 mL) subcutane [...] Not Available Not Available Not Available FreeStyle Jaki 14 Day Sensor kit Use 1 sensor [...] and Address Organization Details Last Updated DateTime 5 179.07 cm 30.1 kg/m2 90420.1 7 g 109 /min 97 % 97.2 [degF] 136/84 mm[Hg] Maria Elena Otero MA [facility] 5 11:20:57 Date Recorded Body height Body mass index (BMI) Body weight Heart rate Oxygen saturation Body temperature Systolic And Diastolic Provider Name and Address Organization Details Last Updated DateTime 5 179.07 cm 31.5 kg/m2 997649. 1 g 105 /min 98 % 98 [degF] 146/83 mm[Hg] Maria Elena Otero MA [facility] 5 14:52:28 Date Recorded Body height Body mass index (BMI) Body weight Heart rate Oxygen saturation Body temperature Systolic And Diastolic Provider Name and Address Organization Details Last Updated DateTime 5 179.07 cm 29.3 kg/m2 66646.6 2 g 106 /min 96 % 97.6 [degF] 94/67 mm[Hg] Jeffery hadley MA [facility] 5 10:49:28 Date Recorded Body height Body mass index (BMI) Body weight Heart rate Oxygen saturation Body temperature Systolic And Diastolic Provider Name and Address Organization Details Last Updated DateTime 5 179.07 cm 28.2 kg/m2 91309.6 8 g 100 /min 96 % 97.9 [degF] 132/86 mm[Hg] Melonie Pope MA [facility] 5 10:46:11 Date Recorded Body height Body mass index (BMI) Body weight Heart rate Oxygen saturation Systolic And Diastolic Provider Name and Address Organization Details Last Updated DateTime 4 179.07 cm 28.5 kg/m2 61256.8 7 g 102 /min 95 % 115/75 mm[Hg] Melonie Pope MA [facility] 4 09:32:29 Social History Question Answer Notes LastModified by Organizat ion Details LastModified Time Tobacco Smoking Status Former Smoker Not Available [facility] 06/06/2020 03:36:36 Do You Have An Advance Directive? Yes [id number] Information not available 06/06/2020 Is Blood Transfusion Acceptable In An Emergency? Yes [id number] Information not available 06/06/2020 What Is Your Level Of Caffeine Consumption? None [id number] Information not available 06/06/2020 In The 14 Days Before Symptom Onset, Have You Had Close Contact With A Laboratory-confir med COVID-19 While That Case Was Ill? No [id number] Information not available 06/06/2020 In The 14 Days Before Symptom Onset, Have You Had Close Contact With A Person Who Is Under Investigation For COVID-19 While That Person Was Ill? No [id number] Information not available 06/06/2020 Have You Been To An Area Known To Be High Risk For COVID-19? No [id number] Information not available 06/06/2020 What Type Of Diet Are You Following? REGULAR [id number] Information not available 06/06/2020 Which Illicit Or Recreational Drugs Have You Used? None [id number] Information not available 06/06/2020 Live Alone Or With Others? With Others [email or web address] Information not available 05/17/2014 Do You Take Precautions To Prevent Distracted Driving? Yes [email or web address] Information not available 10/01/2016 How Often Do You Need To Have Someone Help You When You Read Instructions, Pamphlets, Or Other Written Material From Your Doctor Or Pharmacy? Never [email or web address] Information not available 09/26/2015 Have You Served In The ? No Information not available 10/01/2016 Have You Or Anyone In Your Household Had Any Of The Following Symptoms In The Last 14 Days: Sore Throat, Cough, Chills, Body Aches For Unknown Reasons, Shortness Of Breath For Unknown Reasons, Loss Of Smell, Loss Of Taste, Fever At Or Greater Than 100 Degrees Fahrenheit? No [email or web address] Information not available 02/15/2020 Are You Or Anyone In Your Household A Health Care Provider Or Emergency Responder? No [email or web address] Information not available 02/15/2020 To The Best Of Your Knowledge Have You Been In Close Proximity To Any Individual Who Tested Positive For COVID-19? No [email or web address] Information not available 02/15/2020 What Was The Date Of Your Most Recent Tobacco Screening? 10/13/2024 [email or web address] Information not available 10/13/2024 How Many Children Do You Have? 3 All Sons [id number] Information not available 06/06/2020 Do You Use Protection During Sex? No [id number] Information not available 06/06/2020 Seat Belts Used Routinely Yes Information not available 09/26/2015 Are You Sexually Active? Yes [id number] Information not available 06/06/2020 Smoke Alarm In Home Yes [email or web address] not available 09/26/2015 Do You Use Sunscreen Routinely? No [id number] Information not available 06/06/2020 Sex: Female Functional Status Question Answer Note LastModified by Organizat ion Details LastModified Time What is your level of alcohol consumption? Occasional rarely [id number] Information not available 06/06/2020 Do you or have you ever used smokeless tobacco? Never used smokeless tobacco [id number] Information not available 06/06/2020 Are you currently employed? No [id number] Information not available 06/06/2020 Are you able to care for yourself independently? Yes [id number] Information not available 06/06/2020 Do you or have you ever used e-cigarettes or vape? Never used electronic cigarettes [id number] Information not available 06/06/2020 What is your exercise level? Occasional [id number] Information not available 06/06/2020 Mental Status None recorded. Family History Relationship Description Onset Age of this Age Resolved Age Notes LastModified by Organization Details LastModified Time Mother Hypertensive disorder 85 [email or web address] Not available 09/26 11:05:14 Mother Diabetes mellitus 85 [email or web address] Not available 04/2019 11:39:48 Father Hypertensive disorder 79 [email or web address] Not available 09/26 11:05:14 Father Harmful pattern of use of alcohol 78 [email or web address] Not available 09/05 11:00:09 Sister Diabetes mellitus [...] Influenza, high-dose, trivalent, PF 5 completed KRISTINE SCHMITZ, [employer] [address] [address], [place], [address], [facility] 05/25/2025 11:19:38 Influenza, split virus, trivalent, PF 5 completed Elizabeth Nair null, [facility] 05/01/2023 14:04:47 Influenza, split virus, quadrivalent, PF 8 completed Elizabeth Nair null, [facility] 05/01/2023 14:04:47 Influenza, MDCK, quadrivalent, PF 9 completed Elizabeth Nair null, [facility] 05/01/2023 14:04:46 Influenza, high-dose, quadrivalent, PF 0 completed Elizabeth Nair null, [facility] 05/01/2023 14:04:46 pneumococcal polysaccharide PPV23 5 completed Not Available [facility] 08/21/2019 02:21:42 COVID-19, mRNA, LNP-S, PF, 30 mcg/0.3 mL dose 1 completed Elizabeth Nair null, [facility] 05/01/2023 14:04:47 COVID-19, mRNA, LNP-S, PF, 30 mcg/0.3 mL dose 1 completed Elizabeth Nair null, [facility] 05/01/2023 14:04:47 Influenza, high-dose, quadrivalent, PF 1 completed Elizabeth Nair null, [facility] 05/01/2023 14:04:46 COVID-19, mRNA, LNP-S, PF, 30 mcg/0.3 mL dose 1 completed Elizabeth Nair null, [facility] 05/01/2023 14:04:47 COVID-19, mRNA, LNP-S, bivalent, PF, 50 mcg/0.5 mL or 25mcg/0.25 mL dose 3 completed Elizabeth Nair null, [facility] 05/01/2023 14:04:47 Influenza, high-dose, quadrivalent, PF 2 completed Elizabeth Nair null, [facility] 05/01/2023 14:04:46 Pneumococcal conjugate PCV20, polysaccharide OSC072 conjugate, adjuvant, PF 3 completed ANNIE Montez, [facility] 06/16/2024 10:58:24 COVID-19, mRNA, LNP-S, PF, 50 mcg/0.5 mL 3 completed ANNIE Montez, [facility] 06/16/2024 10:58:24 COVID-19, mRNA, LNP-S, PF, margie-sucrose, 30 mcg/0.3 mL 4 completed ANNIE Montez, [facility] 06/25/2024 10:38:45 Influenza, high-dose, trivalent, PF 4 completed ANNIE Montez, [facility] 06/25/2024 10:38:45 Tdap 5 completed Not Available [facility] 05/25/2025 10:33:28 COVID-19, mRNA, LNP-S, PF, margie-sucrose, 30 mcg/0.3 mL 5 completed Not Available [facility] 05/25/2025 10:33:28 zoster recombinant 5 completed Not Available [facility] 05/25/2025 10:33:28 Influenza, split virus, quadrivalent, PF 7 completed Not Available [facility] 08/21/2019 02:22:11 Influenza, split virus, trivalent, PF 4 completed Not Available [facility] 08/21/2019 02:21:57 Tdap 4 completed Not Available [facility] 08/21/2019 02:21:44 Pneumococcal conjugate PCV 13 0 completed Not Available [facility] 08/21/2019 02:21:41 Influenza, split virus, quadrivalent, PF 3 completed Chio Argueta MD [address], [address], [facility] 04/29/2023 17:26:37 Td (adult), 2 Lf tetanus toxoid, preservative free, adsorbed 4 completed Chio Argueta MD [address] [address], [place], [address], [facility] 09/10/2023 13:05:16 influenza, seasonal, intradermal, preservative free 2 completed Elizabeth Nair null, [facility] 05/01/2023 14:04:47 influenza, seasonal, intradermal, preservative free 3 completed [facility] null, [facility] 05/01/2023 14:04:47 Influenza, high-dose, trivalent, PF 5 completed Prince Ballesteros PA null, [facility] 11/18/2024 14:52:23 Past Encounters Encounter ID Performer Location Encounter Start Date Encounter Closed Date Diagnosis/Indication Diagnosis SNOMED-CT Code Diagnosis ICD10 Code Diagnosis IMO Codes Diagnosis Note [id number] autoEComm erce [address] [facility] [place] [address] 02/10/2007 00:00:00 [id number] autoEComm erce [address] [facility] [address] [place] [address] 09/01/2007 00:00:00 [id number] autoEComm erce [address] [facility] [address] [place] [address] 10/19/2007 00:00:00 [id number] autoEComm erce [address] [facility] [address] [place] [address] 11/16/2007 00:00:00 [id number] autoEComm erce [address] [facility] [address] [facility] [place] [address] 07/18/2008 00:00:00 [id number] autoEComm erce [address] [facility] [address] [place] [address] 02/20/2009 00:00:00 [id number] [address]Comm erce [address] [address] [place] [address] 08/31/2009 00:00:00 [id number] [address]Comm er[address] [address] [place] [address] 04/05/2010 00:00:00 [id number] auto[employer]Comm erce [address] [address] [place] [address] 10/26/2010 00:00:00 [id number] autoEComm erce [address] [address] [place] [address] 03/19/2011 00:00:00 [id number] autoEComm erce [address] [address] [place] [address] 10/29/2011 00:00:00 [id number] autoEComm erce [address] [facility] [address] [place] [address] 05/04/2012 00:00:00 [id number] autoEComm erce [address] [facility] [address] [place] [address] 11/04/2012 00:00:00 [id number] autoEComm erce [address] [facility] [address] [place] [address] 12/31/2012 00:00:00 [id number] autoEComm erce [address] [facility] [address] [place] [address] 05/13/2013 00:00:00 [id number] autoEComm erce [address] [facility] [address] [place] [address] 05/19/2013 00:00:00 [id number] autoEComm erce [address] [facility] [address] [place] [address] 06/16/2013 00:00:00 [id number] autoEComm erce [address] [facility] [address] [place] [address] 08/09/2013 00:00:00 [id number] autoEComm erce [address] [address] [place] [address] 09/06/2013 00:00:00 [id number] autoEComm erce [address] [facility] [address] [place], [place] [address] 10/12/2013 00:00:00 [id number] autoEComm erce [address] [facility] [address] [place], [place] [address] 12/06/2013 00:00:00 [id number] autoEComm erce [address] [facility] [address] [place], [place] [address] 01/06/2014 00:00:00 [id number] Chio Argueta MD Main Office [address] [address] [place] [address] 05/17/2014 10:39:41 05/17/2014 12:07:12 Type 2 diabetes mellitus 08730501 Needs infl uenza immunization 891271597 Sciatica 95486754 schedule d for back surgery with Dr Serna next week. Administra tion of diphtheria, pertussis, and tetanus vaccine 940023668 Adult heal th examination 445580234 Essential hypertension 00686925 [id number] Chio Argueta MD Main Office [address] [address] [place] [address] 08/16/2014 10:32:13 08/16/2014 11:39:13 Type 2 diabetes mellitus 25406104 Essential hypertension 01445652 [id number] Chio Argueta MD Main Office [address] [address] [place] [address] 11/16/2014 10:18:48 11/16/2014 11:35:45 Sciatica 13193427 Follow[address] by Dr Serna and by [facility] but current mgmt has not yet taken care of her pain. She states that the only thing that helps is narcotics but understand s that this is not the best jail solution. I will call [facility] to see if we can work out a plan to help with her pain. Essential hypertension 40448552 good control on just the nifedipine Type 2 jayson betes mellitus without complication 144106146 this has been diet controlled since she lost weight. We will continue to monitor. [id number] Chio Argueta MD Main Office [address] [address] [place] [address] 03/23/2015 10:45:38 03/23/2015 11:59:01 Essential hypertension 92780518 good control on just the nifedipine Type 2 jayson betes mellitus without complication 366742641 this has been diet controlled since she lost weight. We will continue to monitor. Administra tion of pneumococcal vaccine 01541280 Abdominal pain 94628948 th is may represent IBS. Degenerati on of lumbar intervertebral disc 61975963 she is followed by [facility] and they have been prescribin g her percocet. They have mentioned in their notes that this is not a extermination inspector solution and that they will not be writing scripts in the future. She appears to have a dependence on narcotics at this time. [id number] Chio Argueta MD Main Office [address] [facility] [address] [place] [address] 09/26/2015 10:40:50 09/26/2015 11:54:36 Adult health examination 900526368 Z00.00 Advance di rective discussed with patient 501382661 Z71.89 Type 2 jayson betes mellitus without complication 532646717 E11.9 this has been diet controlled since she lost weight. We will continue to monitor. Degenerati on of lumbar intervertebral disc 77426007 M51.36 She is followed by [facility] and has been receiving injections which has helped. Essential hypertension 51179621 I10 good control on just the nifedipine [id number] Chio Argueta MD Main Office [address] [facility] [address] [place] [address] 01/25/2016 10:29:24 01/25/2016 11:13:04 Type 2 diabetes mellitus 34699557 E11.9 This has been diet-contr olled for years since she lost weight. We will continue to monitor twice yearly. Essential hypertension 44462690 I10 good control on just the nifedipine Varicella vaccination 68 997215 Z23 [id number] Chio Argueta MD Main Office [address] [facility] [address] [place] [address] 10/01/2016 10:00:25 10/01/2016 11:14:20 Adult health examination 953008111 Z00.00 Type 2 jayson betes mellitus 69174544 E11.9 This has been diet-contr olled for years since she lost weight. We will continue to monitor twice yearly. Ischemic colitis 0541921 4 K55.9 Had a partial colectomy in 2013 Degenerati on of lumbar intervertebral disc 67992454 M51.36 She is followed by [facility] and has been receiving injections which has helped. Essential hypertension 40649039 I10 good control on just the nifedipine [id number] Chio Argueta MD Main Office [address] [facility] [address] [facility] [place] [address] 04/01/2017 09:09:27 04/01/2017 10:02:56 Type 2 diabetes mellitus 18255291 E11.9 This has been diet-contr olled for years since she lost weight. We will continue to monitor twice yearly. Needs infl uenza immunization 273672065 Z23 Body mass index 30+ - obesity 354279311 Z68.30 Allergic rhinitis 505780 04 J30.9 Essential hypertension 15087081 I10 good control on just the nifedipine Trigger fi nger of right hand 3129571112 2396926 M65.311 She will do exercises and if it doesn't help she will then make an appointmen t with a hand surgeon. [id number] Chio Argueta MD Main Office [address] [place] [address] 10/30/2017 12:35:06 10/30/2017 13:39:58 Painless rectal bleeding 233452115 K62.5 Given her h/o ischemic colitis and partial colectomy we will refer her to GI for further evaluation . [id number] Chio Argueta MD Main Office [address] [address] 11/04/2017 10:51:58 11/04/2017 11:52:10 Adult health examination 751767776 Z00.00 She is due for a colonoscop y and we will check with Dr Cochran who did her last one in 2014 if she should follow with him. UTD with immunizati ons. Type 2 jayson betes mellitus without complication 170370523 E11.9 this has been diet controlled since she lost weight. But this time her A1C is elevated above 7.0. She will continue with lifestyle changes and return in 3 months and if it remains high we will restart her meds. Obesity 526126618 E66.9 Body mass index 30+ - obesity 628651802 Z68.31 Persistent microalbuminuria due to type 2 diabetes mellitus 070422533 R80.1 Essential hypertension 41600657 I10 good control on just the nifedipine . Discuss adding an ACEI at her next visit. [id number] Chio Argueta MD Main Office [address] [address] [place] [address] 12/02/2017 12:48:36 12/02/2017 13:41:52 Palpitations 89426626 R00.2 Prolonged QT interval 11 3947798 I45.81 This may be secondary to oxycodone. We will check labs and repeat her EKG at next appointmen t. [id number] Chio Argueta MD Main Office [address] [address] [place] [address] 01/13/2018 11:55:09 01/15/2018 17:35:45 [id number] Lucita Tellez PA-C Main Office [address] [place] [address] [place] [address] 01/20/2018 10:06:27 01/20/2018 11:31:15 Uncontrolled type 2 diabetes mellitus [id number] E11.65 Total time spent teaching and coordinati ng diabetic care 45 minutes. Basic physiology of Type II Diabetes Mellitus was reviewed. Glucose records were reviewed. Pt. was advised to monitor glucose 3 times per day ; before each main meal. Pt. will be set up for 14 day CGM with Jaki Pro and advised to keep food diary and return in 2 weeks for f/u. Goal for fasting glucose is 80-130 and 1-2 hrs after the meal under 180. Pt. was instructed on 1500 ina ADA diet and given 7 day sample menus to use at home. Pt. was advised to start exercise activity by walking 30 min at least 3 times weekly and increase weekly or by weekly to 4-6 day per week. If unable to walk , pt. should use other exercise modalities /equipment that is stationary at home or in the gym for that amount of time weekly or water exercises. Increase Lantus to 37 u daily. Continue HUmalog sliding scale TID.14 day CGM applied. PT. will return for upload and result discussion in 14 days. Body mass index 30+ - obesity 525769038 E66.01 Z68.35 Z68.30 [id number] Chio Argueta MD Main Office [address] [facility] [address] [place] [address] 02/02/2018 10:07:29 02/02/2018 10:59:38 Type 2 diabetes mellitus without complication 474412184 E11.9 Eustachian tube disorder 04445780 H69.91 Rhinitis medicamentosa 26911264 J31.0 Stop afrin and start flonase. [id number] Lucita Tellez PA-C Main Office [address] [address] [place] [address] 02/03/2018 10:27:07 02/03/2018 11:26:42 Uncontrolled type 2 diabetes mellitus 537688176 E11.65 IMproving glycemic control. Will repeat A1c at next visit in 6 weeks. Lantus keep at 35 u daily. HUmalog sliding scale TID and start Metfromin ER 50 mg 2 po qd with supper. POssible side effects discussed. Avoid skiping main meals to avoid random hypoglycem ia. Test glucose 4 times daily. [id number] Lucita Tellez PA-C Main Office [address] [address] [place] [address] 04/01/2018 14:06:15 04/01/2018 15:41:17 Patient encounter status 972878404 Z01.818 Mrs. Hurst has 0.15% estimated risk probabilit y for perioperat asmita HI or cardiac arrest by Lazo criteria and normal pulmonary status. Low increase in overall risk from anesthesia . Her labs are ordered and will be faxed to the surgeon as requested. Trigger th umb of right hand [id number] 80964 M65.311 Type 2 jayson betes mellitus without complication 317729423 E11.9 stable control with A1c of 6.8% today. Pt. is advised to take Lantus a night before the procedure 1/2 of regular dosage . NO HUmalog before the procedure. Essential hypertension 45762968 I10 stable on NIfedipine . [id number] Lucita Tellez PA-C Main Office [address] [address] [place] [address] 07/01/2018 09:40:27 07/01/2018 10:45:41 Type 2 diabetes mellitus without complication 329940313 E11.9 Excellent diabetic control. Continue current meds. Lower total calories and increase exercise activity. Pt. tests glucose QID, will be eligible for personal Jaki CGM. F/u 4 m. Body mass index 30+ - obesity 633117172 E66.01 Z68.31 [id number] Adina alves MD Main Office [address] [address] [place] [address] 10/28/2018 10:08:50 10/28/2018 10:43:10 Renal disorder due to type 2 diabetes mellitus 700461858 E11.22 Due to formulary changes, Lantus will be changed to Basaglar at the same dose of 32-35 u daily and HUmalog will be replaced with Novolog sliding scale 5-12 u TID. Repeat labs today. F/u 4 m. Chronic ki dney disease stage 3 098970673 N18.3 Body mass index 30+ - obesity 541206993 Z68.32 Obesity 626014869 E66.9 [id number] Chio Argueta MD Main Office [address] [address] [place] [address] 02/02/2019 09:18:03 02/02/2019 10:52:03 [id number] Chio Argueta MD Main Office [address] [address] [place] [address] 02/09/2019 10:50:09 02/09/2019 11:58:17 Adult health examination 702679550 Z00.00 She had a colonoscop y last week and is due again in 2028. UTD with immunizati ons. Type 2 jayson betes mellitus without complication 315517457 E11.9 Back on meds and followed by Lucita. Has an appointmen t next month. Essential hypertension 21850507 I10 good control on just the nifedipine . Will add a low-dose ACEI. [id number] Thom Dugan MD Main Office [address] [address] [place] [address] 04/14/2019 09:58:55 04/14/2019 10:52:05 Renal disorder due to type 2 diabetes mellitus 365674497 E11.22 A1c was 5.6% on 02/09. BP stable. Cr and GFR improved from 10/20 to 02/19. Currently on 1000mg metformin, Basaglar lower to 30 units at night, Humalog 5-7 units at meals. Contineu current regimen. F/u 4 m. Microalbuminuria 4234084 06 R80.9 Microalbum inuria, kidney disease. Will repeat urine microalbum in again, if progressed , refer for renal consult. If not, then repeat renal fxn tests in 3 months. Body mass index 30+ - obesity 147105381 E66.9 Z68.33 discussed improving diet and exercise regimen Chronic ki dney disease stage 2 875407694 N18.2 repeat microalbum in. renal function is stable. [id number] Chio Argueta MD Main Office [address] [address] [place] [address] 08/17/2019 10:30:21 08/17/2019 11:20:51 Essential hypertension 06564296 I10 Good control with nifedipine and lisinopril . No changes. Administra tion of pneumococcal vaccine 72077321 Z23 [id number] Thom Dugan MD Main Office [address] [address] [place] [address] 10/26/2019 10:08:05 10/26/2019 11:19:46 Renal disorder due to type 2 diabetes mellitus 068255088 E11.22 Stable type II DM with renal complicati ons. Pt. has difficulty affording her basal insulin. Rx will be sent to [facility]. Pt. is advised to continue current medication s and encouraged to test glucose daily at . Repeat labs. Chronic ki dney disease stage 3 222120493 N18.3 continue lisinopril 5 mg. repeat microalbum in. Long-term current use of insulin 620220081 Z79.4 continue current insulins. [id number] Chio Argueta MD Main Office [address] [address] [place] [address] 11/16/2019 12:01:25 11/16/2019 14:49:35 Nasal congestion 18299198 R09.81 Allergic rhinitis 311434 04 J30.9 [id number] Chio Argueta MD Main Office [address] [address] [place] [address] 11/26/2019 09:23:48 11/26/2019 13:10:16 [id number] Chio Argueta MD Main Office [address] [facility] [address] [place] [address] 12/09/2019 15:10:28 12/10/2019 14:46:15 Acute sinusitis 17780122 J01.90 [id number] Gonsalo Hearn MD [facility] [address] [facility] [address] [place] [address] 01/27/2020 11:55:05 01/27/2020 14:05:22 Diabetic peripheral neuropathy 476752439 E11.40 d/t her sxs and h/o DM - appears she has DPN - rec trial of gbn, advised her to slowly uptitrate the dose as amaya [id number] Chio Argueta MD Main Office [address] [address] [place] [address] 02/15/2020 10:46:28 02/15/2020 11:44:37 Adult health examination 212790529 Z00.00 She had a colonoscop y 2018 and is due again in 2028. UTD with immunizati ons. Chronic ki dney disease stage 3 719796579 N18.3 Discussed the importance of diabetes and BP control. Renal diso rder due to type 2 diabetes mellitus 536381036 E11.29 Excellent control. Followed by Lucita. Abdominal pain 95493999 R10.9 this may represent IBS. May also be secondary to diabetic gastropare sis. She has an appointmen t to see Dr Shah next month. Will continue prilosec and metoclopra mide for now. Menopause present 198834 006 Z78.0 Body mass index 30+ - obesity 794608578 E66.9 Z68.31 [id number] Chio Argueta MD [facility] [address] [facility] [address] [place] [address] 03/27/2020 13:05:31 03/27/2020 14:44:28 Renal disorder due to type 2 diabetes mellitus 605444331 E11.22 Stable type II DM with renal complicati ons. Lower Basaglar to 30 u daily. Lower Novolog to 5-7 u TID, continue metformin. Return in 3-4 m for retest. Continue titrating insulin down if A1c allows to avoid random hypoglycem ia. Chronic kaia dney disease stage 3 992367599 N18.3 continue lisinopril 5 mg. [id number] Adina alves MD [facility] [address] [place] [address] 09/08/2020 09:00:47 09/22/2020 11:36:03 Congestion of nasal sinus 31783031 R09.81 steam, flonase, keep hydrated. Pt states she is sure this is not covid, declines testing. Agrees to try flonase and zyrtec for allergies. If not better to call back for re evaluation and/or covid testing. [id number] Chio Argueta MD Main Office [address] [place] [address] 11/07/2020 11:19:53 11/07/2020 12:01:53 Essential hypertension 12785874 I10 Good control with nifedipine and lisinopril . No changes. Chronic kaia dney disease stage 3 608658884 N18.30 Renal diso rder due to type 2 diabetes mellitus 425616016 E11.29 Excellent control. Followed by Lucita. Long-term current use of insulin 478361788 Z79.4 Acute sinusitis 41298852 J01.90 [id number] Chio Argueta MD Main Office [address] [place] [address] 03/22/2021 10:53:16 03/22/2021 11:56:11 Adult health examination 160048012 Z00.00 She had a colonoscop y 2018 and is due again in 2028. UTD with immunizati ons including COVID but is due for a shingles vaccine. Chronic kaia dney disease stage 3A 266535124 N18.31 Continue with good control of diabetes and HTN. We will stop her diltiazem because of the cost and increase her lisinopril from 5 to 20 mg. She will return for a BP check in 1 month. Hypertensi ve renal disease 12692827 I12.9 BP under good control; continue current mgmt. Renal diso rder due to type 2 diabetes mellitus 794376495 E11.22 Continue quarterly follow-up of serum creatinine , blood pressure, glycemic control. Referral to renal as indicated. Body mass index 30+ - obesity 154817317 E66.9 Z68.31 Anemia 323396284 D64.9 Currently taking iron supplement s. [id number] Chio Argueta MD Main Office [address] [place] [address] 05/08/2021 12:39:01 05/08/2021 13:27:04 Hypertensive renal disease 76053931 I12.9 We stopped the diltiazem because of cost and increased her lisinopril to 20 mg but BP still running high. Will add a diuretic and see her back in 1 month. Chronic ki dney disease stage 3A 367417915 N18.31 Continue quarterly follow-up of serum creatinine , blood pressure, glycemic control. Referral to renal as indicated. Renal diso rder due to type 2 diabetes mellitus 677949629 E11.22 Followed by Lucita. Will make an appointmen t. Acute sinusitis 29632414 J01.90 Secondary to poorly-con trolled allergies. [id number] Angelic Sharma MD Main Office [address] [place] [address] 07/18/2021 10:09:26 07/18/2021 10:39:45 Renal disorder due to type 2 diabetes mellitus 183100294 E11.22 Stable type II DM with renal complicati ons. Increase Basaglar to 35 u daily. Continue pre meal siding scle TID. Continue metformin. Repeat labs in August. F/u 4 m. Hypertensi ve renal disease 44975943 I12.9 Meds increased by PCP . Pt. sees him in f/u right after holidays. Pt was advised to test BP at daily and bring both meter and her readings in August. Long-term current use of insulin 310539580 Z79.4 continue current insulins. Chronic ki dney disease stage 3A 120735883 N18.31 continue acei Diabetic p eripheral neuropathy 845877761 E11.40 F/u with the sheet turner every 3 m. [id number] Chio Argueta MD Main Office [address] [place] [address] 08/07/2021 10:39:06 08/07/2021 11:32:05 Hypertensive renal disease 39586188 I12.9 We stopped the diltiazem because of cost and have been titrating her lisinopril and HCTZ. She has been taking 20/12.5 and we will increase this to 20/25 and see her back in 1 month. Tachycardia 1518507 R00. 0 She has SVT and is w/o symptoms. This problem came on since stopping her diltiazem which was keeping it under control. We will refer her to cardiology for a w/u for an underlying etiology. She understand s that she shoul call if she becomes symptomati c. Chronic ki dney disease stage 3A 999571937 N18.31 [id number] Chio Argueta MD Main Office [address] [facility] [address] [place] [address] 09/17/2021 10:37:49 09/17/2021 11:26:41 Hypertensive renal disease 93286887 I12.9 Good control so no further changes. We check labs since she is taking a diuretic. Chronic low back pain 27 8811196 M54.50 Secondary to OA. Abdominal bloating 83884 9008 R14.0 Advised her to use OTC simethicon e and to continue with the omperazole . Chronic kaia dney disease stage 3A 516270208 N18.31 [id number] Chio Argueta MD Main Office [address] [address] 12/19/2021 09:50:07 12/19/2021 10:43:23 Hypertensive renal disease 31214099 I12.9 BP still running high and although she was prescribed diltiazem a few months ago it looks like she didn't continue it. Will start a beta uriah for BP and SVT and see her back in 1 months. Chronic ki dney disease stage 3A 239351099 N18.31 Possibly secondary to DM2 and HTN. Diabetic p eripheral neuropathy 539475071 E11.40 Renal diso rder due to type 2 diabetes mellitus 855925382 E11.22 A1C is 6.5. Continue current mgmt and we will f/u in 3 months. Long-term current use of insulin 779169662 Z79.4 Supraventr icular tachycardia 3887347 I47.1 Treat with a beta uriah and may need a cardiology referral in the future. [id number] Chio Argueta MD Main Office [address] [address] [place] [address] 03/05/2022 11:24:50 03/05/2022 12:07:34 Hypertensive renal disease 72167603 I12.9 BP still running high despite being on metoprolol 50 mg and diltazem ER 240 mg. Will increase the dose of metoprolol to 100 mg and see her back in 1 month. Tachycardia 5882372 R00. 0 She was restarted on her diltiazem by cardiology , Dr Fiore and is also taking metoprolol 50 mg. I instructed her to increase her metoprolol to 100 mg daily and I sent a cortext to Dr Fiore to let her know about the change and to get her input. Chronic ki dney disease stage 3A 008861887 N18.31 [id number] Chio Argueta MD Main Office [address] [place] [address] 04/02/2022 11:26:41 04/02/2022 12:28:54 Hypertensive renal disease 28818664 I12.9 BP still running high but a call to her pharmacy shows that she has not been taking all of her meds as prescribed . She has been taking metoprolol succinate ER 100 mg and lisinopril HCTZ 20/25 but has not been taking the diltiazem ER 240 mg. I sent a new script and gave her a printed list of her BP meds. We will recheck her BP at her upcoming PE. Chronic ki dney disease stage 3A 507029947 N18.31 Renal diso rder due to type 2 diabetes mellitus 265474579 E11.22 A1C is 6.5. Continue current mgmt and we will f/u in 3 months. [id number] Chio Argueta MD Main Office [address] [place] [address] 04/16/2022 08:41:32 04/16/2022 09:03:46 [id number] Chio Argueta MD Main Office [address] [place], [place] [address] [address] 04/23/2022 12:38:42 04/23/2022 13:44:27 Iron deficiency anemia 35293078 D50.9 Secondary to hemorrhoid s but scheduled for a colonoscop y to r/o other etiology. Will get labs done tomorrow to be sure that her H/H is not still going down and will start iron supplement s and vitamin C. [id number] ABIMBOLA TREVINO MD Main Office [address] [facility] [address] [place] [address] 08/28/2022 14:51:45 08/28/2022 15:36:06 Hypertensive renal disease 66158595 I12.9 - BP today 160/76, on repeat it was 136/84- pt is currently on diltiazem ER 240mg, lisinopril 20mg-HCTZ 25mg, metoprolol succinate ER 100mg QD> continue with regimen- pt has a history of non-compli ance Counselled on the following: -Dietary Approaches to Stop Hypertensi on (DASH) is an eating plan rich in fruits, vegetables , whole grains, fish, poultry, nuts, legumes, and low-fat dairy. These foods are high in lynch nutrients such as potassium, magnesium, calcium, fiber, and protein.-A dvised continued adherence to medication s and low salt diet - extensive counsellin g done regarding dietary habits.-En couraged regular aerobic exercise 30 min for 4-5 x week.-BP monitoring at home advised to bring log at every visit-Side -effects of high BP can cause Stroke, Heart attack and even d/w pt-D/w pt when to call 911 or reach out to Health care provider:> Think you are having a reaction to a medicine you are taking.>Dee ve headaches that keep coming back (recurring ).>Feel dizzy.>Hav e swelling in your ankles.>Dee ve trouble with your vision. Renal diso rder due to type 2 diabetes mellitus 865025891 E11.22 - A1C is 6.5 done on 12/2021- current regimen includes: fast acting insulin 5-12 units TID and long-actin g insulin 35 units QD> continue with current regimen- will check new HbA1c and ordered urine microalbum in Pt counseled on the following: The main goals of treatment in type 2 diabetes are to keep your blood sugar levels within your goal range and treat other medical conditions that go along with diabetes (like high blood pressure); it is also very important to stop smoking if you smoke. These measures will reduce your risk of complicati ons.>Blood sugar control It is important to keep your blood sugar levels at goal levels. This can help prevent long-term complicati ons that can result from poorly controlled blood sugar (including problems affecting the eyes, kidney, nervous system, and cardiovasc ular system).>H ome blood sugar testing Your doctor may instruct you to check your blood sugar yourself at home, especially if you take certain oral diabetes medicines or insulin. Home blood sugar testing is not usually necessary for people who manage their diabetes through diet only.>A random blood sugar test is based on blood drawn at any time of day, regardless of when you last ate. A fasting blood sugar test is a blood test done after not eating or drinking for 8 to 12 hours (usually overnight) . A normal fasting blood sugar is less than 100 mg/dL (5.6 mmol/L), although people with diabetes may have a different goal.>A1C testing Blood sugar control can also be estimated with a blood test called glycated hemoglobin , or A1C. The A1C blood test measures your average blood sugar level over the past two to three months. The goal A1C for most young people with type 2 diabetes is 7 percent (53 mmol/mol) or less, which correspond s to an average blood sugar of approximat megan 150 mg/dL (8.3 mmol/L) (table 1). Lowering your A1C level reduces your risk for kidney, eye, and nerve problems.> Reducing the risk of cardiovasc ular complicati ons The most common, serious, long-term complicati on of type 2 diabetes is cardiovasc ular disease, which can lead to problems like heart attack, stroke, and even . On average, people with type 2 diabetes have twice the risk of cardiovasc ular disease as people without diabetes.> Lower your risk of cardiovasc ular disease by: Quitting smoking, if you smoke and managing high blood pressure and high cholestero l with diet, exercise, and medicinesT aking a low-dose aspirin every day, if your health care provider recommends thisSome studies have shown that lowering A1C levels with certain medication s may also reduce your risk for cardiovasc ular disease. DIET AND EXERCISE IN TYPE 2 DIABETESDi et and exercise are the foundation of diabetes management .Changes in diet can improve many aspects of type 2 diabetes, including helping to control your weight, blood pressure, and your body's ability to produce and respond to insulin. The single most important thing most people can do to improve diabetes management and weight is to avoid all sugary beverages, such as soft drinks or some juices, or if this is not possible, to significan tly limit consumptio n. Limiting overall portion size is also very important. Regular exercise can also help control type 2 diabetes, even if you do not lose weight. Exercise is related to blood sugar control because it improves your body's response to insulin. Iron defic iency anemia 57483917 D50.9 - Hb has been improving was last 9.2 on 04/24/2022- will recheck Hb and iron profile today- JULIANA most likely coming form hemorrhoid s that were noted on colonoscop y done on 04/25- c/w iron supplement ation and vitamin C to help with absorption of the iron Adult [facility] examination 552427470 Z00.00 Health Maintenanc e FemaleA) Patient was counseled on healthy diet, exercise and nutrition due to BMI of 30.4 B) ScreeningL ast Mammogram: start at age 50 stop at 74Date: 09/02/2021 esult: BIRADS-2Ne xt: pt will be due 09/02/2022 Last Pap smear: start at age 21 to age 65Date: 12/05/2020e sults: negative for intraepith elial lesionsNex t: aged out Last Colonoscop y: start at age 45-75Date: 04/26/2022 esult: internal/e xternal hemorrhoid s, anastomosi s notedNext: none needed Last DEXA scan:Date: ordered but not completedR esult: ??? C) Vaccines:I nfluenza: 05/03/2022 TdAP: 05/17/2014 Zoster: refused because cannot afford itPCV13: 08/17/2019 PPSV23: 03/23/2015 COVID: 09/13/2020 , 10/04/2020 , 07/05/2021 , 08/13/2022 D) Routine blood work orderedE) Updated patient's history RTC in one year for annual exam or sooner if any acute complaints Body mass index 30+ - obesity 612327991 E66.9 Z68.31 Advance di rective discussed with patient 895136636 Z71.89 - pt recently passed- pt provided with new HCP and advanced directive papers Chronic ki dney disease stage 3B 703296162 N18.32 - on last blood work 04/19/2022 it was noted that GFR was 37 with creatine of 1.5- ordered repeat BMP Hyperlipidemia 51840367 E78.5 Memory impairment 197393 006 R41.3 - it was noted today on exam that patient that patient scored a 12 on the 6CIT- on the mini-cog exam pt also failed- pt mentioned this is all due to her recent passing and she as not been herself.- will give some patient time for the grieving process and repeat memory testing in 6 months [id number] Chio Argueta MD [address] [facility] [address] [place] [address] 04/16/2023 10:15:43 04/16/2023 11:19:10 Hypertensive renal disease 36009619 I12.9 Renal diso rder due to type 2 diabetes mellitus 987881226 E11.22 Acute sinusitis 96522186 J01.90 Hydration, rest, tylenol or ibuprofen as needed, tea with honey, OTC cough meds as needed, nasal sinus rinses as needed. [id number] Chio Argueta MD Main Office [address] [facility] [address] [place] [address] 04/29/2023 10:54:02 04/29/2023 11:47:45 Needs influenza immunization 019313800 Z23 Renal diso rder due to type 2 diabetes mellitus 266798393 E11.22 A1C is 6.5. Continue current mgmt and we will f/u in 3 months. Hypertensi ve renal disease 72220078 I12.9 BP doing better. No change in meds. Chronic ki dney disease stage 3A 754165536 N18.31 Continue to monitor HTN and DM2. [id number] Chio Argueta MD Main Office [address] [place] [address] 09/09/2023 14:39:44 09/09/2023 15:17:20 Adult health examination 128654419 Z00.00 She had a colonoscop y 2018 and is due again in 2028. UTD with immunizati ons including COVID but is due for a shingles vaccine. Iron defic iency anemia 50563165 D50.9 Secondary to hemorrhoid s. Will recheck to be sure she has been stable. Hypertensi ve renal disease 57822747 I12.9 Good control; continue current mgmt. Diabetic p eripheral neuropathy 637029153 E11.40 Renal diso rder due to type 2 diabetes mellitus 861598924 E11.22 Last A1C was 7.1. Will recheck today and adjust meds as needed. Advance care planning 71 4673205 Z71.89 HCP and MOLST forms discussed and given. Requires a tetanus booster 710822880 Z23 Nasal congestion 9606219 0 R09.81 Chronic ki dney disease stage 4 945413764 N18.4 [id number] Chio Argueta MD Main Office [address] [place] [address] 06/09/2024 09:14:06 06/17/2024 12:15:09 [id number] Chio Argueta MD Main Office [address] [place] [address] 06/16/2024 10:43:31 06/16/2024 11:25:57 Hyponatremia 05994996 E87.1 was evaluated at [facility] [place] [place] on 06/08-will repeat electrolyt es Hypokalemia 05383855 E87 .6 -will repeat electrolyt es Acute kidney injury [address] showed no acute process-wa s consulted by renal for AIXA and anion gap metabolic acidosis>h ad creatinine of 7.7; repeat CMP improved to 1.86>creat inine baseline is around 1.5-1.9-wa s put on IV fluids and had noticeable improvemen ts and improvemen ts in BP-will recheck kidney and electrolyt es Nausea [id number] R11.0 resolved Metabolic acidosis, increased anion gap (IAG) 22341897 E87.20 was evaluated by renal at [facility] [place] [place]-anion gap improved with IV fluids-yadi ging was unremarkab le-diarrhe a and aixa were contributi ng factors [id number] Chio Argueta MD Main Office [address] [address] [place] [address] 06/25/2024 10:32:07 06/25/2024 11:19:55 Hypertensive renal disease 44182397 I12.9 Running high because her lisinopril 5 mg, metoprolol ER 100 mg and diltiazem 240 mg were all stopped during her recent hospitaliz ation. She will start lisinopril 10 mg and we will see her back in 4 weeks. Renal diso rder due to type 2 diabetes mellitus 032043160 E11.22 Her A1C has improved from 7.1 to 6.5. Good control; continue current mgmt. [id number] Chio Argueta MD Main Office [address] [address] [place] [address] 07/29/2024 09:19:23 07/29/2024 12:07:59 Fever [id number] R50.9 Hypertensi ve renal disease 05138946 I12.9 Good control with current mgmt; continue. Chronic ki dney disease stage 3B 257302697 N18.32 Renal diso rder due to type 2 diabetes mellitus 480281994 E11.22 Last A1C was 7.1. Will recheck today and adjust meds as needed. Upper resp iratory infection 94877018 J06.9 Cough 41231272 R05.9 [id number] Chio Argueta MD Main Office [address] [place] [address] 10/13/2024 10:53:48 10/13/2024 11:51:32 Adult health examination 921366842 Z00.00 She had a colonoscop y 2018 and is due again in 2028.UTD with immunizati ons including COVID, pneumonia and tetanus but is due for a shingles vaccine. jabier will get a flu vaccine today. Influenza vaccine needed [id number] 106 Z23 65 YEARS AND OLDER Diabetic p eripheral neuropathy 973453169 E11.40 Hypertensi ve renal disease 01025545 I12.9 Good control with current mgmt; continue. Renal diso rder due to type 2 diabetes mellitus 815105340 E11.22 Last A1C was 7.1. Will recheck today and adjust meds as needed. Nocturia 640334043 R35.1 Probably secondary to the amount she drinks at night. Could be related to diabetes but less likely since her A1C has been running well although this does not r/o high sugars at night. Will check for infection. Allergic rhinitis 519266 04 J30.9 Chronic ki dney disease stage 3B 723746124 N18.32 [id number] Chio Argueta MD Main Office [address] [place] [address] 12/21/2024 14:45:34 12/21/2024 15:23:32 Pain of multiple joints 58570654 M25.50 [id number] Involving only toes and fingers. A rheum referral may not be appropriat e. We will check labs first and gets notes from [facility]. She is already taking regular narcotics so rheum may not be able to add anything to her treatment unless something on her labs indicate a referral would be helpful. [id number] Gonsalo Hearn MD Main Office [address] [place] [address] 03/23/2025 10:20:33 03/23/2025 11:39:59 Renal disorder due to type 2 diabetes mellitus 174889435 E11.22 Stable type II DM with renal complicati ons. and obesity.re commend addition of mounjaro at 2.5 mg weekly for 4 weeks, then 5 mg weekly. Continue insulin , but plan to reduce dose as soon as glucose starts trending down. F/u 6 weeks. referral for ophthalmol ogy provided. Long-term current use of insulin 815462197 Z79.4 continue current insulins. Hypertensi ve renal disease 22834187 I12.9 Pt lost weight , has symptomati c hypotensio n today. Recom to increase hydration and drop lisinopril HCTZ to a half tablet. Monitor bp at home daily for 2 weeks, then weekly. Chronic ki dney disease stage 3B 251419225 N18.32 F/up with renal. [id number] Gonsalo Hearn MD Main Office [address] [place] [address] 05/25/2025 10:30:24 05/25/2025 11:19:46 Pain of knee region 8843669017 M25.561 M25.562 G89.29 [id number] - Patient has chronic intermitte nt bilateral [...] of care. Requires i nfluenza virus vaccination 106709397 Z23 [id number] Health Concerns Section Related Observation LastModified by Organization Jerad thorpe LastModified Time None Recorded Concern Status LastModified by Organization Details LastModified Time None Recorded Advance Directives Directive Y: Payers Insurance Date Sequence Insurance Name Policy Number Policy Knox Covered Member ID Knox Member ID Guarantor Name 06/08/2025 2 [employer] (MEDICARE SUPPLEMENT) Guillermina Hurst [id number] Guillermina Hurst 06/09/2024 1 [facility] (MEDICARE REPLACEMENT /ADVANTAGE - PPO) [id number] Guillermina Hurst [id number] Guillermina Hurst 06/09/2024 3 [facility] Guillermina Hurst [id number] Guillermina Hurst 06/08/2025 1 [place] [employer] Guillermina Hurst [id number] Guillermina Hurst 06/09/2024 2 [place] [facility] Guillermina Hurst [id number] Guillermina Hurst 06/09/2024 1 [place] [id number] Avani Hurst [id number] Guillermina Hurst 06/09/2024 1 [facility] (HMO) [id number] Guillermina Hurst [id number] Guillermina Hurst 06/09/2024 1 [place] [facility] Guillermina Hurst [id number] Guillermina Hurst 06/09/2024 1 [employer] (MEDICARE SUPPLEMENT) Guillermina Hurst [id number] Guillermina Hurst Notes Date Note Type Note Provider Name and Address Organization Details Recorded Time 07/29/2024 text/html Hypertension F/UReported by PatientHPIFor lifestyle, patient reportsnot exercising regularlybut reportslimiting/avoidi ng salt. For associated symptoms, patient reportsno dizziness,no lightheadedness,no chest pain,no shortness of breath,no palpitations,no edema, andno calf pain with exertion. For medications, patient reportstaking medications as directedandno side effects from medication.Taking diltiazem CD 240 mg and lisinopril 20-HCTZ 25 mg. Diabetes F/UReported by PatientC/w meds and A1C looks good at 6.5.ROS as noted in the HPI Her heart rate is often running high sometimes above 130. She is aware of it at times. She was seen by cardiology who recommended diltiazem. This was restarted one month ago and her heart rate has come down some but resting heart rate still around 100. She has had nasal congestion, productive cough and PND over the last 3 days. Denies f/c and tested negative for COVID. Also denies a sore throat or sinus pain. Has not taken any OTC meds. Has a difficult time sleeping at night. No known ill contacts. Chio Argueta MD [address] [address], [place], [phone], [facility] [place] 07/29/2024 11:46:24 10/13/2024 text/html Medicare Annual Wellness VisitReported by PatientSocial/Behavior al HistoryFor diet and nutrition, patient reportshigh carbohydrate mealsbut reportsdiscussed vitamin and supplement useanddiscussed maintaining calcium balance. For fracture risk, patient reportsno history of fracturesandno sudden unexplained fractures. For physical activity, patient reportsexercises on a regular basis (walks about a mile a day).Mental Status:For depression risk, patient reportsnever feels sad, empty, or tearful,no loss of interest in activities,no significant changes in weight,no sleep disturbances or insomnia,no agitation,no loss of energy,no feelings of worthlessness or guilt,no thoughts of suicide,no history of depression, andno history of mood disorders. For orientation, patient reportsno disorientation to time,no disorientation to date, andno disorientation to place. For concentration and memory, patient reportsno decreased concentrating ability,no memory lapses or loss, anddoes not forget words. For speech/motor difficulties, patient reportsno speech difficulties,no difficulty expressing formulated concepts,no difficulty with fine manipulative tasks,no difficulty writing/copying,no slowed reaction time, anddoes not knock things over when trying to pick them up.Functional AbilityFor instrumental activities of daily living, patient reportsunable to manage money without assistancebut reportsable to do house work with limited or no assistance,able to grocery shop with limited or no assistance (she cannot drive to the store but can shop w/o assistance once there.),able to manage medications with limited or no assistance,able to prepare meals with limited or no assistance, andable to use the phone with limited or no assistance. For hearing, patient reportsno loss of hearing. For vision, patient reportsno vision problems. For activities of daily living, patient reportsable to bathe with limited or no assistance,able to contol urination and bowels,able to dress with limited or no assistance,able to feed self with limited or no assistance,able to get out of chair or bed with limited or no assistance,able to groom with limited or no assistance, andable to toilet with limited or no assistance. For falls risk assessment, patient reportsno frequent falls while walkingandno fall in the past year. For home safety, patient reportsworking smoke/co detectorsanduse of seatbelts.ROS as noted in the HPI Ringing in her ears over the last couple of months. Nocturia and lower abdominal pressure. Drinks a lot of water and soda throughout the day and night. How would you rate your health? Good Advance Directive: forms discussed and given to her to complete. Chio Argueta MD [address] [address], [place], [phone], [facility] 10/13/2024 13:05:29 12/21/2024 text/html ROS as noted in the HPI She has been having swelling in her hands and pain in her fingers and toes. She is followed by podiatry, Dr Cedeno for her toenail care and was seen by him yesterday. She denies any injury. She no longer wears her rings because of fear of not being able to remove them. She denies other joint problems. She has been taking oxycodone prescribed by Dr Mathews at [facility]. We do not have any recent notes from [facility]. Chio Argueta MD [address] [address], [place], [phone], [facility] 12/22/2024 08:40:57 03/23/2025 text/html Diabetes F/URepo rted by PatientHPIFor associated symptoms, patient reportsweight loss (16 lbs)but reportsno headaches,no blurred vision,no numbness of feet, andno calluses on feet. For context, patient reportsnormal range of home blood sugars (in the low 100s),seeing eye doctor regularly,checking feet regularly,not missing doses of medications, andno side effects from medications.HgA1c is 7.1%. Meds: glargine 35 u, Novolog 5-10 u before meals.CKD stg 3B followed by renal. Blood pressure is low today. Pt reports feeling fatigued and slight dizziness. Lost 16 lbs since the last visit. No diabetic oculopathy.ROS as noted in the HPI Lucita Tellez PA-C [address] [address], [place], [phone], [facility] 03/23/2025 14:25:44 05/25/2025 text/html Musculoskeletal PainReported by PatientHPIFor quality, [...] presenting today for bilateral knee pain. KRISTINE SCHMITZ, [facility]- [address] [address], [place], [phone], [facility] 05/25/2025 17:00:50 OBGyn Episode No OBEpisode recorded.
== END 2025-06-29 14:20 | disposition home or self-care (01) ==
LOC: HO.HPHYS 12:35
PROVIDERS: PCP Internal Medicine; Visit Provider Physician Assistant
DX: M17.0 Bilateral primary osteoarthritis of knee (principal); M10.9 Gout, unspecified
CPT/HCPCS: 20610; 99203

== ENCOUNTER → 2025-06-29 12:34 | Outpatient (BNVA) | payer MEDICARE, SELFPAY | PROVIDERS: PCP Internal Medicine; Visit Provider Physician Assistant | DX: M17.0 Bilateral primary osteoarthritis of knee (principal); M10.9 Gout, unspecified | CPT/HCPCS: 20610; 99202; J2003; J3301 ==